=== PATIENT | male | born 1955 | race Caucasian/White ===

== ENCOUNTER 2017-03-24 23:02 | Inpatient (IN) | payer BC ==
--- NOTE | ~2017-03-24 | IDS ---
Interim Discharge Summary [facility] [address] [place]. [address] NAME: KENNETH LYMAN : 59 STATUS : DIS IN PAT#: [id number] AGE: 62 ADM/REG DATE : 03/25/17 MR#: [id number] REPORT SERV DATE: 04/10/17 DICTATED BY: YO SANDERS DATE: 04/07/17 REPORT STATUS : Draft TRANSCRIBED BY: DOROTHY DATE: 04/07/17 ADMISSION DATE: 03/25/2017 DISCHARGE DATE: PROCEDURES DONE: 1. 03/25/2017, chest x-ray: No acute cardiopulmonary disease identified. 2. 03/25/2017, ultrasound of kidneys: Both kidneys are normal size and configuration. There is no kidney stones or hydronephrosis. Echogenicity of the renal parenchyma is normal. The patient has 2.6 x 1.5 benign. 3. 03/26/2017, 2D echo: Severe left ventricle dysfunction noted with left ventricular ejection fraction at 25%, which compares to 55% on 01/16/2017, moderate right ventricular systolic function, mild mitral. REASON FOR ADMISSION: Dizziness with orthostatic hypotension, and acute renal failure. CONSULT: Dr. Alarcon for Psychiatry and renal. HISTORY OF HOSPITAL STAY: A 62-year-old white male with past medical history of multiple myeloma, coronary artery disease status post CABG, alcoholic pancreatitis, diabetes, rheumatoid arthritis, mitral valve repair, hypertension, depression, alcoholism, peripheral arterial disease, neuropathy, COPD, presenting with dizziness, orthostatic hypotension, and acute renal failure. The patient was initially admitted in the intensive care unit for his orthostatic hypotension, acute renal failure, and dizziness. The patient turned out to have alcohol DTs at that time. The patient was controlled with Librium at 300 mg total per day. Unfortunately, Ativan has the opposite effect on this patient which causes more agitation. Nonetheless, the patient was then transferred to the floor and eventually the patient's DTs subsequently was better control with the decrease of Librium as well as the use of vodka. Psychiatry was consulted due to the patient's continued behavioral issues as well as his alcohol dependence. Psychiatry started the patient on Seroquel for behavior control as well as Remeron for sleep. However, despite the initial starting medication of Seroquel, the patient continues to have behavioral issues. Questionable if the behavioral issue is causing the patient to have/cause increased alcohol intake. Hopefully, once the patient's medication has been titrated for behavioral issues, the patient can be safely discharged home. The patient initially was going to go to [facility] but fortunately the patient was able to walk at least 400 feet without any difficulties. DIAGNOSES ON DISCHARGE: 1. Dizziness with orthostatic, nausea and vomiting resolved. 2. Nausea, vomiting, secondary alcohol DTs, resolved. 3. ETOH with DTs, severe. Currently controlled but requires Seroquel for behavioral control. The patient's p.r.n. Librium as well as the p.r.n. vodka has been discontinued. Relying on Seroquel for behavioral control. 4. Diabetes type 2, currently asymptomatic. 5. Hypertension, stable. Interim Discharge Summary [address] [address] NAME: KENNETH LYMAN : 59 STATUS : DIS IN PAT#: [id number] AGE: 62 ADM/REG DATE : 03/25/17 MR#: [id number] REPORT SERV DATE: 04/10/17 DICTATED BY: YO SANDERS DATE: 04/07/17 REPORT STATUS : Draft TRANSCRIBED BY: DOROTHY DATE: 04/07/17 DANIEL/DOROTHY Yo Sanders MD / [id number] CC: MD Brooklyn Mratinez M.D.
--- NOTE | ~2017-03-24 | CN ---
Consultation Report [facility] [address] [place]. [address] NAME: KENNETH LYMAN : 59 STATUS : ADM IN PAT#: [id number] AGE: 62 ADM/REG DATE : 03/25/17 MR#: [id number] REPORT SERV DATE: 03/25/17 DICTATED BY: DATE: REPORT STATUS : Draft TRANSCRIBED BY: MODL DATE: 03/25/17 CONSULTATION DATE OF CONSULTATION: 03/25/2017 REASON FOR CONSULTATION: Acute kidney injury. HISTORY OF PRESENT ILLNESS: This is a 62-year-old, male patient, who presents to [facility] with a complaint of dizziness and fatigue. He was noted to exhibit acute kidney injury on assessment and prompted evaluation in inpatient hospital support. He has been seen in consultation by Dr. Cox for his known diagnosis of multiple myeloma. We are asked to evaluate the patient in response to elevated creatinine at 4.73 with usual baseline appearing to be approximately around 1.6 to 1.8. He has however had previous acute kidney injuries with max creatinine listed at 9.41 in 02/2016, de-escalating to dismissal on 03/23/2016 at 2.95 with readmission in 07/2016, creatinine 4.75, dismissal on 08/17/2016 at 1.34. Re-evaluation on 09/18/2016 with creatinine 1.88 and then again in 01/2017 of 0.89. Creatinine on admission today at 5.67, now subsiding to 4.73. The patient is noncommittal about his level and use of alcohol at home, although he does carry a diagnosis history of alcoholic pancreatitis and is known to frequently use alcohol by history. He reports feeling dizzy and fatigued over the last 48 to 72 hours and reported to [facility] for evaluation where he was noted to have hypotension and he concomitantly used GRACIELA inhibitor. He is awake and alert. This morning, he is without complaint and lying in bed during evaluation. PAST MEDICAL HISTORY: Positive for multiple myeloma, status post chemotherapy, completed in 05/2016, followed by Dr. Cox, who has evaluated the patient this morning; coronary artery disease, status post CABG, followed by Dr. Burkett; alcoholic pancreatitis; diabetes mellitus; rheumatoid arthritis; mitral valve repair; hypertension; depression; liver hemangioma; colon polyps; alcoholism; peripheral artery disease; neuropathy; COPD; previous CABG in 2015; and previous mitral repair. ALLERGIES: HE HAS AN ALLERGY TO PHENERGAN. HOME MEDICATIONS: Include ASA 81 mg daily, Coreg 6.25 mg p.o. b.i.d., Neurontin 300 mg p.o. b.i.d., Levemir 11 units subcu twice daily, lisinopril 20 mg p.o. daily, OxyContin 10 mg p.o. q.12 hours p.r.n., Crestor 10 mg p.o. at bedtime, oxycodone 20 mg p.o. every four hours p.r.n. as needed. REVIEW OF SYSTEMS: Completed. Please see HPI for pertinent details. SOCIAL HISTORY: Chronic use of ETOH. The patient states that he approximately uses 15 out of 30 days alcohol and varies his consumption. He states that he is a previous smoker and intermittently smokes now. In review of his previous dictations, it appears on this Consultation Report [address] [address] NAME: KENNETH LYMAN : 59 STATUS : ADM IN [facility]#: [id number] AGE: 62 ADM/REG DATE : 03/25/17 MR#: [id number] REPORT SERV DATE: 03/25/17 DICTATED BY: DATE: REPORT STATUS : Draft TRANSCRIBED BY: DOROTHY DATE: 03/25/17 admission assessment created this visit, he admits to drinking daily. He is noncommittal about whether or not he may chronically use nonsteroidal medications. FAMILY HISTORY: Noncontributory and not reviewed during this consultation and dictation. PHYSICAL EXAMINATION: VITAL SIGNS: Blood pressure 122/64, temperature 97.8, respiratory rate 18, heart rate is 70 beats per minute. GENERAL: He is awake, alert, and oriented x3 and is appropriate and oriented on evaluation. HEENT: Normocephalic and atraumatic. Normal ocular movements. No scleral icterus. No conjunctival pallor is appreciated. NECK: Supple. No thyromegaly. No JVD or mass. CHEST: Shows positive S1 and S2. No rubs. No gallops. Lungs diminished to auscultation throughout with normal expansion and effort. No noted wheezes or rhonchi on auscultation. ABDOMEN: Soft and nontender with positive bowel sounds. No appreciable mass or tenderness. SKIN: Warm, dry, and intact on visualized surfaces. No rash, lesions, or ecchymosis. NEUROLOGIC: He appears to be grossly intact and nonfocal and he is of appropriate mood and affect. LABORATORY DATA: Pertinent laboratories and imaging to this evaluation are as follows. Most recent comprehensive metabolic panel: Sodium 141, potassium 3.0, chloride 106, CO2 23, BUN 37, creatinine 4.73, reflected GFR at 12 mL/minute. Calcium 7.9, magnesium 2.6, albumin 3.1, total bilirubin 0.6, alkaline phos at 90, ALT and AST at 31 and 23, TSH 0.587. Serum protein electrophoresis is pending. Ionized calcium is at 5.12. White blood cell count of 5.3, hemoglobin 10.5, hematocrit 31.7, platelets at 87. Portable chest x-ray, no acute cardiopulmonary deficit is noted. Drug screen and alcohol screen was negative, and ammonia level was at 24. IMPRESSION AND PLAN: This is a 62-year-old, male patient, now admitted to [facility] with dizziness, lethargy, and near-syncope with concomitant use of GRACIELA inhibitor, known history of alcohol abuse and known history of multiple myeloma. It appears through review with the patient that he has had some low blood pressures at home, and he continues to exhibit some level of hypotension on entry here at [facility]. Appropriately, his GRACIELA inhibitor has been removed and his beta-jaron is being currently held. He is being provided IV supplement with a banana bag, would also submit that his lactated Ringer's should be changed at half-normal saline with 20 mEq of potassium to follow intermittent infusion of banana bag as listed above as his potassium is depressed. Continue to hold his GRACIELA inhibitor as listed. Monitor his blood pressure and allow the blood pressure increase to increase his perfusion. Considering the acute nature of his renal failure, we will check renal ultrasound, although I am doubtful that we will find any acute abnormality. He continues to make a reasonable amount of urine, and we are hopeful that he will recover his renal function baseline. Injury is likely relatable to ATN due to hypoperfusion with suboptimal blood pressures plus or minus volume contraction. Further modification of treatment plan may be made based on clinical presentation, the patient's laboratory results, further consultation with renal attending. Consultation Report [facility] [address] [place]. [address] NAME: KENNETH LYMAN : 59 STATUS : ADM IN PAT#: [id number] AGE: 62 ADM/REG DATE : 03/25/17 MR#: [id number] REPORT SERV DATE: 03/25/17 DICTATED BY: DATE: REPORT STATUS : Draft TRANSCRIBED BY: MODL DATE: 03/25/17 We appreciate the consultation and we are glad to follow with you. /DOROTHY Quang Adamson NP / [id number] CC: Pallavi Shaver M.D.
--- NOTE | ~2017-03-24 | CN ---
Consultation Report [facility] [address] [place]. [address] NAME: KENNETH LYMAN : 59 STATUS : ADM IN PAT#: [id number] AGE: 62 ADM/REG DATE : 03/25/17 MR#: [id number] REPORT SERV DATE: 04/05/17 DICTATED BY: WON MICHELLE DATE: 04/05/17 REPORT STATUS : Draft TRANSCRIBED BY: MODL DATE: 04/05/17 PSYCHIATRIC CONSULTATION DATE OF CONSULTATION: 04/05/2017 I reviewed the patient's current and old medical records. HISTORY OF PRESENT ILLNESS: He was admitted with fatigue, orthostatic symptoms, dizziness, and bony pain. I was asked to address possible depression. PAST PSYCHIATRIC HISTORY: He reports he had one admission for alcohol rehabilitation to a facility in [place] about 10 years ago. He reports that he has been alcohol dependent for all or most of his adult life. He reports his longest period of sobriety was about 10 months. He also reports feeling depressed from time to time, but it is difficult to determine if this is a problem which is independent of his alcoholism. He said he was drinking a pint or may be a fifth of liquor every few days. He felt he needed alcohol to get to sleep at night. He also reports some distress concerning his recent diagnosis with multiple myeloma, his compromised cardiac condition, and his past CABG and mitral valve repair. FAMILY HISTORY: No psychiatric illness. He said his older brother may have had an alcohol problem but he is now sober. SOCIAL HISTORY: He has been and 4 times. He has two daughters of whom he is very proud. One is a nurse and the other is a certified ethical hacker. He also has two grandchildren. He became tearful as he talked about his daughters and grandchildren. 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 MENTAL STATUS: He was pleasant and cooperative in attitude. His mood was dysphoric. His affect was labile with a few very brief episodes of crying. Overall his mentation was very slowed. He was able to answer orientation questions only after long pauses. He was oriented to "March"-"1969"-"[facility]"- "[place]." He was not able to name the President but he said "the one who should not be President." DIAGNOSIS: 1. Alcohol dependence and withdrawal. 2. Depressive disorder, not otherwise specified. RECOMMENDATIONS: The slowing of mentation was quite remarkable. Could it be a Librium effect? We discussed a plan for sobriety. He was not interested in returning to or reentering a rehab facility. He said "it is something I have to do". He was agreeable to a trial of Remeron 30 mg p.o. at bedtime. I will follow up tomorrow. Consultation Report [address] [place]. [address] NAME: KENNETH LYMAN : 59 STATUS : ADM IN PAT#: [id number] AGE: 62 ADM/REG DATE : 03/25/17 MR#: [id number] REPORT SERV DATE: 04/05/17 DICTATED BY: WON MICHELLE DATE: 04/05/17 REPORT STATUS : Draft TRANSCRIBED BY: DOROTHY DATE: 04/05/17 DK/DOROTHY Won Michelle M.D. / [id number] CC: MD Brooklyn Martinez M.D.
--- NOTE | ~2017-03-24 | HP ---
History And Physical [address] [address] NAME: KENNETH LYMAN HASMUKH : 59 STATUS : ADM IN [facility]#: [id number] AGE: 62 ADM/REG DATE : 03/25/17 MR#: [id number] REPORT SERV DATE: 03/25/17 DICTATED BY: LUDMILA LEARY DATE: 03/25/17 REPORT STATUS : Draft TRANSCRIBED BY: MODL DATE: 03/25/17 DATE OF ADMISSION: 03/25/2017 CHIEF COMPLAINT: A 62-year-old male presenting with dizziness, orthostatic symptoms, and evidence of acute renal failure. HISTORY OF PRESENT ILLNESS: The patient's history was obtained through careful interview with the patient, coupled with review of [facility] medical records. The patient for about four days now has had increasing nausea, episodes of vomiting, decreased appetite with this he has experienced dizziness, lightheadedness, and orthostatics symptoms. He has severe exertional lightheadedness causing him to be almost completely inactive. He has checked his blood pressure at home and this evening noticed a blood pressure of 78/50, but has been consistently low in the 80s and 90s. He describes diffuse bony pain mostly in his neck and back, but throughout most of the bones of his body. He describes it as a stiffness and an aching quality, 7 to 8/10 severity that is constant. About three weeks ago, he fractured and lacerated his right ankle and it has apparently being treated and monitored conservatively. He has "extreme" neuropathy with loss of sensation in his hands and feet that he attributes to previous chemotherapy. He has had recent sinus issues. No cough. No shortness of breath. No chest pain. No fevers or chills. REVIEW OF SYSTEMS: Otherwise, a 14-point review of systems was obtained and was negative. PAST MEDICAL HISTORY: 1. Multiple myeloma status post chemotherapy completed in May 2016, followed by Dr. Cox. 2. Coronary artery disease, status post CABG, followed by Dr. Burkett. 3. Alcoholic pancreatitis. 4. Diabetes. 5. Rheumatoid arthritis. 6. Mitral valve repair. 7. Hypertension. 8. Depression. 9. Liver hemangioma. 10.Colon polyps. 11.Alcoholism. History And Physical [address] [address] NAME: KENNETH LYMAN HASMUKH : 59 STATUS : ADM IN PAT#: [id number] AGE: 62 ADM/REG DATE : 03/25/17 MR#: [id number] REPORT SERV DATE: 03/25/17 DICTATED BY: LUDMILA LEARY DATE: 03/25/17 REPORT STATUS : Draft TRANSCRIBED BY: MODJesus DATE: 03/25/17 12.Peripheral arterial disease. 13.Neuropathy. 14.COPD. PAST SURGICAL HISTORY: 1. CABG in 2014. 2. Mitral valve repair. ALLERGIES: TO PHENERGAN. SOCIAL HISTORY: Quit smoking. Drinks vodka daily. Lives alone. He is . Lives in [place], [place]. 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 He ambulates with a cane. He has a daughter who works as a nurse and lives locally. FAMILY HISTORY: Diabetes. Mother with breast cancer. CURRENT MEDICATIONS: 1. Aspirin 81 mg p.o. daily. 2. Coreg 6.25 mg p.o. b.i.d. 3. Neurontin 300 mg p.o. b.i.d. 4. Levemir 11 units subcutaneous twice a day. 5. Lisinopril 20 mg p.o. daily. 6. OxyContin 10 mg p.o. b.i.d. 7. Crestor 10 mg p.o. daily. 8. Oxycodone 20 mg every 4 hours p.r.n. PHYSICAL EXAMINATION: VITAL SIGNS: Temperature 98.2, pulse 80, blood pressure 81/35 with a mean arterial pressure initially of 64, the blood pressure did improve to consistent mean arterial pressure over 70 after an initial 1 L normal saline bolus, respiratory rate 16, and O2 saturation 96% on room air. GENERAL: A pleasant, cooperative male, in no acute distress. HEENT: Pupils equal, round, and reactive to light. No conjunctival pallor. No scleral icterus. Nares are patent. Oropharynx is clear of obstruction. Dry mucous membranes. NECK: Trachea midline. No thyromegaly. LYMPH: No cervical lymphadenopathy. No supraclavicular lymphadenopathy. RESPIRATORY: Clear to auscultation at bases. No wheezes, rales, or rhonchi. Normal respiratory effort. CARDIOVASCULAR: Regular rate and rhythm. No murmurs, rubs, or gallops. No extremity edema is appreciated. ABDOMEN: Soft, nontender, and nondistended. No flank tenderness. No hepatosplenomegaly. DERMATOLOGICAL: Warm and dry extremities. No pallor. No cyanosis. PSYCHIATRIC: Normal affect. Good mood. Alert and oriented x3. LABORATORY DATA: Albumin 3.4. Liver enzymes within normal limits. Ammonia level 24. White blood cell count 6.1, hemoglobin 11, hematocrit 33, and platelets 115. History And Physical [address] [address] NAME: KENNETH LYMAN : 59 STATUS : ADM IN PAT#: [id number] AGE: 62 ADM/REG DATE : 03/25/17 MR#: [id number] REPORT SERV DATE: 03/25/17 DICTATED BY: LUDMILA LEARY DATE: 03/25/17 REPORT STATUS : Draft TRANSCRIBED BY: DOROTHY DATE: 03/25/17 Sodium 131, potassium 2.5, chloride 94, bicarb 31, BUN 39, creatinine 5.67, and glucose 146. Urinalysis shows no evidence of infection, but positive protein. STUDIES: Chest x-ray by my own evaluation shows flattening diaphragm and COPD changes, but nothing acute. ASSESSMENT AND PLAN: 1. Acute renal failure. Place on IV fluids. Place Pan catheter. Provide supportive care of hypertension. Obtain Nephrology consult. 2. Hypertension. Hold blood pressure medications. Place on IV fluids. 3. Alcoholism. P.R.N. Librium. Place on banana bag IV daily. 4. Multiple myeloma. Check ESR. Check serum protein electrophoresis. Check ionized calcium. 5. Chronic obstructive pulmonary disease. Place on DuoNeb nebulizers. KPL/MODL Ludmila Leary M.D. / [id number] CC: Pallavi Shaver M.D. Andrew H Fowler, M.D. Edward Arrowsmith, M.D.
--- NOTE | ~2017-03-24 | DS ---
Discharge Summary [facility] [address] [place]. [address] NAME: KENNETH LYMAN : 59 STATUS : DIS IN PAT#: [id number] AGE: 62 ADM/REG DATE : 03/25/17 MR#: [id number] REPORT SERV DATE: 04/10/17 DICTATED BY: LUCY FLOWER DATE: 04/09/17 REPORT STATUS : Draft TRANSCRIBED BY: MODJesus DATE: 04/09/17 ADMISSION DATE: 03/25/2017 DISCHARGE DATE: 04/09/2017 PRINCIPAL DIAGNOSIS: Delirium tremens in the setting of alcohol abuse. SECONDARY DIAGNOSES: 1. Hypotension. 2. Chronic obstructive pulmonary disease. 3. Chronic systolic congestive heart failure. 4. Acute renal failure. 5. History of rheumatoid arthritis. 6. History of mitral valve repair. 7. Tobacco abuse. 8. Chronic pain with opioid dependence. HISTORY OF PRESENT ILLNESS: Please see Dr. Martinez's dictation from 03/25/2017. HOSPITAL COURSE: The patient was admitted with weakness, hypotension, CHF medications had to be held due to low blood pressure. Librium was given p.r.n., however despite that he went into delirium tremens requiring brief ICU stay, high doses of Ativan which were ultimately able to be weaned back to Librium. He was continued upon daily vodka and Librium 50 mg t.i.d. before Psychiatry was consulted, who rightly discontinued the actual alcohol in the setting of alcohol abuse and alcoholic cardiomyopathy. He was put on the Seroquel p.r.n., Librium was also changed to p.r.n. He had no further withdrawal symptoms. His CHF medications were restarted at lower doses and he met the maximum benefit of hospitalization by 04/09/2017. He declined inpatient or outpatient alcohol rehab, he said that he can quit this on his own. He was given prescriptions for Seroquel and Librium p.r.n. with instructions to follow up with Dr. Cortez. He was instructed not to smoke to reduce his opiate dependence, not to drink alcohol, and take the following medications: 1. Prinivil 10 mg daily. 2. Levemir 10 q.h.s. 3. Coreg was increased to 3.125 mg b.i.d. 4. Librium as mentioned. 5. Seroquel as mentioned. 6. OxyContin 10 mg b.i.d. 7. Lipitor 20 mg q.h.s. 8. Daily aspirin. 9. Oxycodone was reduced to 10 mg q.4 hours p.r.n., given the very high p.r.n. doses he was on through Pain Management. SHIRIN/DOROTHY Lucy Sood Discharge Summary [facility] [id number] [place]. [address] NAME: KENNETH LYMAN : 59 STATUS : DIS IN PAT#: [id number] AGE: 62 ADM/REG DATE : 03/25/17 MR#: [id number] REPORT SERV DATE: 04/10/17 DICTATED BY: LUCY FLOWER DATE: 04/09/17 REPORT STATUS : Draft TRANSCRIBED BY: DOROTHY DATE: 04/09/17 Pallavi Flower / [id number] CC: Pallavi Bryson M.D.
[~2017-03-24 23:02] MED LIST: ASAB PO; B1100 PO; C5 PO; COREG3 PO; CRESTOR10; CRESTOR10 PO; CRESTOR20 MG PO; CRESTOR40 MG PO; DEXAMETHASONE; DURA50 TOP; FOLIC PO; HABIT21 TOP; HALF81 PO; KDUR20 PO; L40 PO; LEVEMIR SC; LIPITOR40 PO; MSCONT15 PO; MVI PO; NEUR300 PO; NIACIN100 PO; NORCO1 TAB PO; NORV5 PO; NOVOLOG SC; OXYCOD PO; OXYCON10 PO; OXYIR5 MG PO; PCET PO; PERCOCET1 TA2 PO; PERCOCET1 TA4 PO; PR25 PO; PRILOSEC OTC20 MG PO; PRILOSEC40 MG PO; PRIN10 PO; VITC500 PO; WELLSR150 PO; WELLXL150 PO; ZENPEP5000 UNIT PO; [UNRECOGNIZED DRUG - CODE]; [UNRECOGNIZED DRUG - OTHER] IV/IM/SC
[2017-03-25] MEDS ORDERED: ZESTRIL20 MG PO (00:46)
[2017-03-25] MEDS ORDERED: COREG6 PO (00:47)
[2017-03-25 00:58] LABS: BASOPHILS 0.7 %; BASOPHILS ABSOLUTE 0.04 10/3/uL (0.0-0.16); EOSINOPHILS ABSOLUTE 0.12 10/3/uL (0.0-0.53); ER CBC TAT 0 Hrs 03 Mins; HEMOGLOBIN 11.5 g/dL (13.6-17.8); IMMATURE GRANULOCYTES 0.2 %; IMMATURE GRANULOCYTES ABSOLUTE 0.01 10/3/uL (0.0-0.11); LYMPHOCYTES 30.6 %; LYMPHOCYTES ABSOLUTE 1.85 10/3/uL (0.67-4.30); MEAN CORPUSCULAR HEMOGLOB 32.6 pg (26.0-34.0); MEAN PLATELET VOLUME 11.1 fL (9.2-13.0); MONOCYTES 9.3 %; MONOCYTES ABSOLUTE 0.56 10/3/uL (0.21-1.20); NEUTROPHILS 57.2 %; NEUTROPHILS ABSOLUTE 3.47 10/3/uL (2.02-8.40); RBC DISTRIBUTION WIDTH 15.4 % (12.0-16.0); RED CELL COUNT 3.53 10/6/uL (4.7-6.1); WHITE BLOOD CELLS 6.1 10/3/uL (4.5-10.5)
[2017-03-25] MEDS ORDERED: OXYCOD PO (00:58)
[2017-03-25 01:03] LABS: ASCORBIC ACID (UR NOT ORDER) NEG (NEG); BILIRUBIN, URINE NEGATIVE (NEG); ER URINALYSIS TAT 0 Hrs 00 Mins; KETONE, URINE NEGATIVE (NEG); LEUKOCYTE ESTERASE(NOT OR NEG (NEG); NITRITE (URINE) NEG (NEG); WBC (NOT ORDERED) (RFLEX) 1 (0-5)
[2017-03-25 01:04] LABS: HEMATOCRIT 32.9 % (40.0-51.0); MANUAL DIFF NO %; MEAN CORPUSCULAR VOLUME 93.2 fL (80-100); PLATELET COUNT 115 10/3/uL (150-400)
[2017-03-25 01:14] LABS: A/G RATIO 1.1 (0.7-1.9); ALBUMIN 3.4 G/DL (3.5-5.0); CALCIUM, SERUM 8.3 MG/DL (8.5-10.4); CHLORIDE, SERUM 94 MMOL/L (96-112); CO2 (CARBON DIOXIDE) 31 MMOL/L (24-34); GLUCOSE, SERUM 146 MG/DL (60-99); SGOT(AST) 27 U/L (5-40); SGPT(ALT) 35 U/L (5-65); TOTAL BILIRUBIN 0.7 MG/DL (0-1.2); TOTAL PROTEIN 6.4 G/DL (6.0-8.5)
[2017-03-25 01:15] LABS: ALKALINE PHOSPHATASE 101 U/L (45-117); BUN (BLOOD UREA NITROGEN) 39 MG/DL (6-23); CREATININE 5.67 MG/DL (0.70-1.30); GFR AFRICAN AMERICAN 12 ML/MIN (>=60); GFR NON AFRICAN AMERICAN 10 ML/MIN (>=60); POTASSIUM, SERUM 2.5 MMOL/L (3.5-5.3); SODIUM, SERUM 131 MMOL/L (135-148)
[2017-03-25 01:21] LABS: AMPHETAMINES (NOT ORD) NEG (NEG); BARBITURATES (NOT ORDERED NEG (NEG); BENZODIAZEPINES (NOT ORD) NEG (NEG); CANNABINOIDS (THC) NEG (NEG); COCAINE (NOT ORDERED) NEG (NEG); OPIATES POS (NEG); PHENCYCLIDINE(PCP) NEG (NEG); TRICYCLICS NEG (NEG)
[2017-03-25 01:40] LABS: ALBUMIN 3.4 G/DL (3.5-5.0); ALKALINE PHOSPHATASE 102 U/L (45-117); DIRECT BILIRUBIN 0.2 MG/DL (0.0-0.4); INDIRECT BILIRUBIN(NOT ORDER) 0.5 MG/DL (0.1-0.9); SGOT(AST) 27 U/L (5-40); SGPT(ALT) 34 U/L (5-65); TOTAL BILIRUBIN 0.7 MG/DL (0-1.2); TOTAL PROTEIN 6.4 G/DL (6.0-8.5)
[2017-03-25 01:42] LABS: ACETAMINOPHEN LEVEL (TYLENOL) < 2.0 MCG/ML (10.0-20.0); ALCOHOL < 3 MG/DL (0); SALICYLATE < 1.7 MG/DL (-)
[2017-03-25 02:35] LABS: PARTIAL THROMBO TIME 30.7 SEC (22.5-37.2)
[2017-03-25 02:40] LABS: PROTIME (NOT ORD) 13.2 SEC (12.0-14.5)
[2017-03-25 09:15] LABS: BASOPHILS 0.4 %; BASOPHILS ABSOLUTE 0.02 10/3/uL (0.0-0.16); EOSINOPHILS 1.5 %; EOSINOPHILS ABSOLUTE 0.08 10/3/uL (0.0-0.53); HEMATOCRIT 31.7 % (40.0-51.0); HEMOGLOBIN 10.5 g/dL (13.6-17.8); IMMATURE GRANULOCYTES 0.4 %; IMMATURE GRANULOCYTES ABSOLUTE 0.02 10/3/uL (0.0-0.11); LYMPHOCYTES 29.7 %; LYMPHOCYTES ABSOLUTE 1.56 10/3/uL (0.67-4.30); MEAN CORPUSCULAR HEMOGLOB 31.7 pg (26.0-34.0); MEAN CORPUSCULAR VOLUME 95.8 fL (80-100); MEAN PLATELET VOLUME 11.9 fL (9.2-13.0); MONOCYTES ABSOLUTE 0.42 10/3/uL (0.21-1.20); NEUTROPHILS ABSOLUTE 3.16 10/3/uL (2.02-8.40); PLATELET COUNT 87 10/3/uL (150-400); RBC DISTRIBUTION WIDTH 15.4 % (12.0-16.0); RED CELL COUNT 3.31 10/6/uL (4.7-6.1); WHITE BLOOD CELLS 5.3 10/3/uL (4.5-10.5)
[2017-03-25 09:16] LABS: MANUAL DIFF NO %; MEAN CORPUS HGB CONC 33.1 g/dL (32.0-36.0)
[2017-03-25 09:38] LABS: A/G RATIO 1.1 (0.7-1.9); ALBUMIN 3.1 G/DL (3.5-5.0); BUN (BLOOD UREA NITROGEN) 37 MG/DL (6-23); CALCIUM, SERUM 7.9 MG/DL (8.5-10.4); GLOBULIN 2.7 G/DL (2.5-4.1); GLUCOSE, SERUM 131 MG/DL (60-99); SGOT(AST) 23 U/L (5-40); SGPT(ALT) 31 U/L (5-65); TOTAL BILIRUBIN 0.6 MG/DL (0-1.2); TOTAL PROTEIN 5.8 G/DL (6.0-8.5)
[2017-03-25 09:39] LABS: ALKALINE PHOSPHATASE 90 U/L (45-117); CHLORIDE, SERUM 106 MMOL/L (96-112); CO2 (CARBON DIOXIDE) 23 MMOL/L (24-34); CREATININE 4.73 MG/DL (0.70-1.30); GFR AFRICAN AMERICAN 14 ML/MIN (>=60); GFR NON AFRICAN AMERICAN 12 ML/MIN (>=60); SODIUM, SERUM 141 MMOL/L (135-148); ULTRASENSITIVE TSH 0.587 MCIU/ML (0.358-3.740)
[2017-03-25 10:46] LABS: PARTIAL THROMBO TIME 24.4 SEC (22.5-37.2)
[2017-03-25 22:37] LABS: CHLORIDE, SERUM 106 MMOL/L (96-112); CO2 (CARBON DIOXIDE) 26 MMOL/L (24-34); GFR AFRICAN AMERICAN 19 ML/MIN (>=60); GFR NON AFRICAN AMERICAN 16 ML/MIN (>=60); GLUCOSE, SERUM 125 MG/DL (60-99); PHOSPHORUS, SERUM 2.3 MG/DL (2.5-4.5); POTASSIUM, SERUM 3.2 MMOL/L (3.5-5.3); SODIUM, SERUM 137 MMOL/L (135-148)
[2017-03-25 22:38] LABS: BUN (BLOOD UREA NITROGEN) 31 MG/DL (6-23); CREATININE 3.77 MG/DL (0.70-1.30)
[2017-03-26 05:03] LABS: BASOPHILS 0.7 %; BASOPHILS ABSOLUTE 0.04 10/3/uL (0.0-0.16); EOSINOPHILS 1.6 %; EOSINOPHILS ABSOLUTE 0.09 10/3/uL (0.0-0.53); HEMATOCRIT 32.2 % (40.0-51.0); HEMOGLOBIN 11.2 g/dL (13.6-17.8); IMMATURE GRANULOCYTES 0.2 %; IMMATURE GRANULOCYTES ABSOLUTE 0.01 10/3/uL (0.0-0.11); LYMPHOCYTES 36.5 %; LYMPHOCYTES ABSOLUTE 2.04 10/3/uL (0.67-4.30); MEAN CORPUSCULAR HEMOGLOB 32.7 pg (26.0-34.0); MEAN CORPUSCULAR VOLUME 94.2 fL (80-100); MONOCYTES 11.8 %; MONOCYTES ABSOLUTE 0.66 10/3/uL (0.21-1.20); NEUTROPHILS 49.2 %; NEUTROPHILS ABSOLUTE 2.75 10/3/uL (2.02-8.40); PLATELET COUNT 101 10/3/uL (150-400); RBC DISTRIBUTION WIDTH 15.7 % (12.0-16.0); RED CELL COUNT 3.42 10/6/uL (4.7-6.1); WHITE BLOOD CELLS 5.6 10/3/uL (4.5-10.5)
[2017-03-26 05:04] LABS: MANUAL DIFF NO %; MEAN CORPUS HGB CONC 34.8 g/dL (32.0-36.0)
[2017-03-26 05:13] LABS: ALBUMIN 2.9 G/DL (3.5-5.0); BUN (BLOOD UREA NITROGEN) 30 MG/DL (6-23); CALCIUM, SERUM 8.2 MG/DL (8.5-10.4); CHLORIDE, SERUM 107 MMOL/L (96-112); CO2 (CARBON DIOXIDE) 25 MMOL/L (24-34); CREATININE 3.39 MG/DL (0.70-1.30); GFR AFRICAN AMERICAN 22 ML/MIN (>=60); GFR NON AFRICAN AMERICAN 19 ML/MIN (>=60); GLUCOSE, SERUM 106 MG/DL (60-99); PHOSPHORUS, SERUM 2.7 MG/DL (2.5-4.5); POTASSIUM, SERUM 3.2 MMOL/L (3.5-5.3); SODIUM, SERUM 138 MMOL/L (135-148)
[2017-03-27 04:53] LABS: BASOPHILS 0.6 %; BASOPHILS ABSOLUTE 0.03 10/3/uL (0.0-0.16); EOSINOPHILS 1.4 %; EOSINOPHILS ABSOLUTE 0.07 10/3/uL (0.0-0.53); HEMATOCRIT 31.9 % (40.0-51.0); HEMOGLOBIN 10.8 g/dL (13.6-17.8); IMMATURE GRANULOCYTES 0.2 %; IMMATURE GRANULOCYTES ABSOLUTE 0.01 10/3/uL (0.0-0.11); LYMPHOCYTES 20.1 %; LYMPHOCYTES ABSOLUTE 0.99 10/3/uL (0.67-4.30); MEAN CORPUS HGB CONC 33.9 g/dL (32.0-36.0); MEAN CORPUSCULAR VOLUME 94.7 fL (80-100); MEAN PLATELET VOLUME 11.2 fL (9.2-13.0); MONOCYTES ABSOLUTE 0.59 10/3/uL (0.21-1.20); NEUTROPHILS 65.7 %; NEUTROPHILS ABSOLUTE 3.24 10/3/uL (2.02-8.40); PLATELET COUNT 104 10/3/uL (150-400); RED CELL COUNT 3.37 10/6/uL (4.7-6.1); WHITE BLOOD CELLS 4.9 10/3/uL (4.5-10.5)
[2017-03-27 04:56] LABS: MANUAL DIFF NO %
[2017-03-27 05:02] LABS: ALBUMIN 2.6 G/DL (3.5-5.0); CALCIUM, SERUM 8.4 MG/DL (8.5-10.4); CHLORIDE, SERUM 108 MMOL/L (96-112); CO2 (CARBON DIOXIDE) 24 MMOL/L (24-34); SODIUM, SERUM 140 MMOL/L (135-148)
[2017-03-27 05:05] LABS: BUN (BLOOD UREA NITROGEN) 25 MG/DL (6-23); CREATININE 2.58 MG/DL (0.70-1.30); GFR AFRICAN AMERICAN 30 ML/MIN (>=60); GFR NON AFRICAN AMERICAN 26 ML/MIN (>=60); GLUCOSE, SERUM 129 MG/DL (60-99); POTASSIUM, SERUM 2.9 MMOL/L (3.5-5.3)
[2017-03-27 11:51] LABS: T PROTEIN (ELECT)(NOT OR 5.2 G/DL (6.0-8.5)
[2017-03-28 01:01] LABS: BUN (BLOOD UREA NITROGEN) 20 MG/DL (6-23); CALCIUM, SERUM 8.6 MG/DL (8.5-10.4); CHLORIDE, SERUM 105 MMOL/L (96-112); CO2 (CARBON DIOXIDE) 26 MMOL/L (24-34); CREATININE 2.08 MG/DL (0.70-1.30); GFR AFRICAN AMERICAN 39 ML/MIN (>=60); GFR NON AFRICAN AMERICAN 34 ML/MIN (>=60); GLUCOSE, SERUM 150 MG/DL (60-99); PHOSPHORUS, SERUM 2.2 MG/DL (2.5-4.5); POTASSIUM, SERUM 3.7 MMOL/L (3.5-5.3); SODIUM, SERUM 138 MMOL/L (135-148)
[2017-03-28 03:43] LABS: BASOPHILS ABSOLUTE 0.04 10/3/uL (0.0-0.16); EOSINOPHILS 2.6 %; EOSINOPHILS ABSOLUTE 0.11 10/3/uL (0.0-0.53); HEMOGLOBIN 10.4 g/dL (13.6-17.8); IMMATURE GRANULOCYTES 0.2 %; IMMATURE GRANULOCYTES ABSOLUTE 0.01 10/3/uL (0.0-0.11); LYMPHOCYTES ABSOLUTE 1.39 10/3/uL (0.67-4.30); MEAN CORPUS HGB CONC 34.7 g/dL (32.0-36.0); MEAN CORPUSCULAR HEMOGLOB 32.4 pg (26.0-34.0); MEAN CORPUSCULAR VOLUME 93.5 fL (80-100); MEAN PLATELET VOLUME 11.8 fL (9.2-13.0); MONOCYTES 10.9 %; MONOCYTES ABSOLUTE 0.46 10/3/uL (0.21-1.20); NEUTROPHILS 52.3 %; PLATELET COUNT 128 10/3/uL (150-400); RED CELL COUNT 3.21 10/6/uL (4.7-6.1); WHITE BLOOD CELLS 4.2 10/3/uL (4.5-10.5)
[2017-03-28 03:46] LABS: MANUAL DIFF NO %
[2017-03-28 03:56] LABS: ALBUMIN 2.6 G/DL (3.5-5.0); BUN (BLOOD UREA NITROGEN) 19 MG/DL (6-23); CALCIUM, SERUM 8.4 MG/DL (8.5-10.4); CHLORIDE, SERUM 105 MMOL/L (96-112); CO2 (CARBON DIOXIDE) 25 MMOL/L (24-34); CREATININE 2.02 MG/DL (0.70-1.30); GFR AFRICAN AMERICAN 40 ML/MIN (>=60); GFR NON AFRICAN AMERICAN 35 ML/MIN (>=60); GLUCOSE, SERUM 161 MG/DL (60-99); PHOSPHORUS, SERUM 2.1 MG/DL (2.5-4.5); POTASSIUM, SERUM 3.3 MMOL/L (3.5-5.3); SODIUM, SERUM 138 MMOL/L (135-148)
[2017-03-28 11:30] LABS: BUN (BLOOD UREA NITROGEN) 17 MG/DL (6-23); CALCIUM, SERUM 8.7 MG/DL (8.5-10.4); CHLORIDE, SERUM 105 MMOL/L (96-112); CO2 (CARBON DIOXIDE) 23 MMOL/L (24-34); GFR AFRICAN AMERICAN 43 ML/MIN (>=60); GFR NON AFRICAN AMERICAN 37 ML/MIN (>=60); GLUCOSE, SERUM 186 MG/DL (60-99); PHOSPHORUS, SERUM 2.6 MG/DL (2.5-4.5); POTASSIUM, SERUM 3.8 MMOL/L (3.5-5.3); SODIUM, SERUM 136 MMOL/L (135-148)
[2017-03-28 11:33] LABS: A/G 1.31 RATIO (0.9-2.10); ALB RELATIVE % 56.7 % (60.0-89.0); ALBUMIN (ELECTRO) 2.95 GM/DL (3.2-5.5); ALPHA 1 (ELECTRO) 0.27 GM/DL (0.1-0.4); ALPHA 1 RELAT % (NOT ORD) 5.2 % (1.0-4.0); ALPHA 2 (ELECTRO) 0.76 GM/DL (0.5-1.10); ALPHA 2 RELAT % 14.7 % (4.5-26.0); BETA GLOBULIN (SPE) 0.74 GM/DL (0.60-1.30); BETA RELATIVE % 14.2 % (9.0-22.0); GAMMA GLOBULIN (SPE) 0.48 G/DL (0.70-1.60); GAMMA RELAT % 9.2 % (6.0-22.0)
[2017-03-28 16:14] LABS: CPK 90 U/L (0-200); TROPONIN I 0.02 NG/ML (<0.05)
[2017-03-28 16:16] LABS: CK-MB 3.5 NG/ML
[2017-03-29 05:54] LABS: HEMATOCRIT 30.3 % (40.0-51.0); HEMOGLOBIN 10.5 g/dL (13.6-17.8); MEAN CORPUS HGB CONC 34.7 g/dL (32.0-36.0); MEAN CORPUSCULAR VOLUME 92.4 fL (80-100); MEAN PLATELET VOLUME 11.9 fL (9.2-13.0); PLATELET COUNT 166 10/3/uL (150-400); RBC DISTRIBUTION WIDTH 15.7 % (12.0-16.0); RED CELL COUNT 3.28 10/6/uL (4.7-6.1); WHITE BLOOD CELLS 4.6 10/3/uL (4.5-10.5)
[2017-03-29 05:55] LABS: MANUAL DIFF YES %
[2017-03-29 05:58] LABS: BUN (BLOOD UREA NITROGEN) 12 MG/DL (6-23); CALCIUM, SERUM 8.9 MG/DL (8.5-10.4); CHLORIDE, SERUM 106 MMOL/L (96-112); CO2 (CARBON DIOXIDE) 24 MMOL/L (24-34); CREATININE 1.74 MG/DL (0.70-1.30); GFR AFRICAN AMERICAN 48 ML/MIN (>=60); GFR NON AFRICAN AMERICAN 42 ML/MIN (>=60); GLUCOSE, SERUM 133 MG/DL (60-99); PHOSPHORUS, SERUM 2.9 MG/DL (2.5-4.5); POTASSIUM, SERUM 3.5 MMOL/L (3.5-5.3); SODIUM, SERUM 139 MMOL/L (135-148); TROPONIN I 0.03 NG/ML (<0.05)
[2017-03-29 06:35] LABS: BASOPHILS 1 %; BASOPHILS ABSOLUTE (CALC) 0.05 10/3/uL (0.0-0.16); EOSINOPHILS 3 %; EOSINOPHILS ABSOLUTE (CALC) 0.14 10/3/uL (0.0-0.53); LYMPHOCYTES 32 %; LYMPHOCYTES ABSOLUTE (CALC) 1.47 10/3/uL (0.67-4.30); MONOCYTES 7 %; MONOCYTES ABSOLUTE (CALC) 0.32 10/3/uL (0.21-1.20); NEUTROPHILS ABSOLUTE (CALC) 2.62 10/3/uL (2.02-8.40); PLATELET ESTIMATE ADQ (ADEQUATE); SEGMENTED NEUTROPHIL (0) 57 %; TOTAL NUCLEATED CELLS 100
[2017-03-29 06:36] LABS: RBC MORPHOLOGY NORM (NORMAL)
[2017-03-30 06:09] LABS: BASOPHILS 1.3 %; BASOPHILS ABSOLUTE 0.05 10/3/uL (0.0-0.16); EOSINOPHILS 2.7 %; HEMOGLOBIN 9.9 g/dL (13.6-17.8); IMMATURE GRANULOCYTES 0.3 %; IMMATURE GRANULOCYTES ABSOLUTE 0.01 10/3/uL (0.0-0.11); LYMPHOCYTES 40.3 %; LYMPHOCYTES ABSOLUTE 1.52 10/3/uL (0.67-4.30); MEAN CORPUS HGB CONC 34.1 g/dL (32.0-36.0); MEAN CORPUSCULAR HEMOGLOB 31.9 pg (26.0-34.0); MEAN CORPUSCULAR VOLUME 93.5 fL (80-100); MEAN PLATELET VOLUME 11.6 fL (9.2-13.0); MONOCYTES 8.5 %; MONOCYTES ABSOLUTE 0.32 10/3/uL (0.21-1.20); NEUTROPHILS 46.9 %; NEUTROPHILS ABSOLUTE 1.77 10/3/uL (2.02-8.40); PLATELET COUNT 157 10/3/uL (150-400); RBC DISTRIBUTION WIDTH 15.8 % (12.0-16.0); WHITE BLOOD CELLS 3.8 10/3/uL (4.5-10.5)
[2017-03-30 06:11] LABS: MANUAL DIFF NO %
[2017-03-30 06:26] LABS: ALBUMIN 2.5 G/DL (3.5-5.0); BUN (BLOOD UREA NITROGEN) 13 MG/DL (6-23); CALCIUM, SERUM 8.4 MG/DL (8.5-10.4); CHLORIDE, SERUM 109 MMOL/L (96-112); CO2 (CARBON DIOXIDE) 24 MMOL/L (24-34); CREATININE 1.66 MG/DL (0.70-1.30); GFR AFRICAN AMERICAN 51 ML/MIN (>=60); GFR NON AFRICAN AMERICAN 44 ML/MIN (>=60); PHOSPHORUS, SERUM 3.3 MG/DL (2.5-4.5); POTASSIUM, SERUM 3.4 MMOL/L (3.5-5.3); SODIUM, SERUM 142 MMOL/L (135-148)
[2017-03-30 06:27] LABS: GLUCOSE, SERUM 104 MG/DL (60-99)
[2017-03-31 06:12] LABS: BASOPHILS 2.2 %; BASOPHILS ABSOLUTE 0.09 10/3/uL (0.0-0.16); EOSINOPHILS 2.9 %; EOSINOPHILS ABSOLUTE 0.12 10/3/uL (0.0-0.53); HEMATOCRIT 31.9 % (40.0-51.0); HEMOGLOBIN 10.7 g/dL (13.6-17.8); IMMATURE GRANULOCYTES 0.2 %; IMMATURE GRANULOCYTES ABSOLUTE 0.01 10/3/uL (0.0-0.11); LYMPHOCYTES 45.3 %; LYMPHOCYTES ABSOLUTE 1.88 10/3/uL (0.67-4.30); MANUAL DIFF NO %; MEAN CORPUS HGB CONC 33.5 g/dL (32.0-36.0); MEAN CORPUSCULAR HEMOGLOB 31.8 pg (26.0-34.0); MEAN CORPUSCULAR VOLUME 94.9 fL (80-100); MEAN PLATELET VOLUME 11.1 fL (9.2-13.0); MONOCYTES 6.7 %; MONOCYTES ABSOLUTE 0.28 10/3/uL (0.21-1.20); NEUTROPHILS 42.7 %; NEUTROPHILS ABSOLUTE 1.77 10/3/uL (2.02-8.40); PLATELET COUNT 178 10/3/uL (150-400); RBC DISTRIBUTION WIDTH 15.6 % (12.0-16.0); RED CELL COUNT 3.36 10/6/uL (4.7-6.1); WHITE BLOOD CELLS 4.2 10/3/uL (4.5-10.5)
[2017-03-31 06:20] LABS: ALBUMIN 2.9 G/DL (3.5-5.0); BUN (BLOOD UREA NITROGEN) 11 MG/DL (6-23); CALCIUM, SERUM 8.8 MG/DL (8.5-10.4); CHLORIDE, SERUM 112 MMOL/L (96-112); CO2 (CARBON DIOXIDE) 25 MMOL/L (24-34); CREATININE 1.66 MG/DL (0.70-1.30); GFR AFRICAN AMERICAN 51 ML/MIN (>=60); GFR NON AFRICAN AMERICAN 44 ML/MIN (>=60); GLUCOSE, SERUM 96 MG/DL (60-99); POTASSIUM, SERUM 3.9 MMOL/L (3.5-5.3); SGOT(AST) 20 U/L (5-40); SGPT(ALT) 17 U/L (5-65); SODIUM, SERUM 145 MMOL/L (135-148); TOTAL BILIRUBIN 0.7 MG/DL (0-1.2); TOTAL PROTEIN 5.9 G/DL (6.0-8.5)
[2017-03-31 06:21] LABS: ALKALINE PHOSPHATASE 107 U/L (45-117)
[2017-04-01 05:51] LABS: BASOPHILS 1.6 %; BASOPHILS ABSOLUTE 0.07 10/3/uL (0.0-0.16); EOSINOPHILS 2.3 %; HEMATOCRIT 31.9 % (40.0-51.0); HEMOGLOBIN 10.9 g/dL (13.6-17.8); IMMATURE GRANULOCYTES 0.2 %; IMMATURE GRANULOCYTES ABSOLUTE 0.01 10/3/uL (0.0-0.11); LYMPHOCYTES 35.2 %; LYMPHOCYTES ABSOLUTE 1.53 10/3/uL (0.67-4.30); MEAN CORPUS HGB CONC 34.2 g/dL (32.0-36.0); MEAN CORPUSCULAR HEMOGLOB 32.4 pg (26.0-34.0); MEAN CORPUSCULAR VOLUME 94.9 fL (80-100); MEAN PLATELET VOLUME 11.1 fL (9.2-13.0); MONOCYTES 6.9 %; NEUTROPHILS 53.8 %; NEUTROPHILS ABSOLUTE 2.34 10/3/uL (2.02-8.40); PLATELET COUNT 179 10/3/uL (150-400); RBC DISTRIBUTION WIDTH 15.7 % (12.0-16.0); RED CELL COUNT 3.36 10/6/uL (4.7-6.1); WHITE BLOOD CELLS 4.4 10/3/uL (4.5-10.5)
[2017-04-01 06:02] LABS: MANUAL DIFF NO %
[2017-04-01 06:03] LABS: A/G RATIO 0.9 (0.7-1.9); ALBUMIN 2.9 G/DL (3.5-5.0); ALKALINE PHOSPHATASE 97 U/L (45-117); BUN (BLOOD UREA NITROGEN) 13 MG/DL (6-23); CALCIUM, SERUM 9.1 MG/DL (8.5-10.4); CHLORIDE, SERUM 111 MMOL/L (96-112); CO2 (CARBON DIOXIDE) 27 MMOL/L (24-34); CREATININE 1.46 MG/DL (0.70-1.30); GFR AFRICAN AMERICAN 60 ML/MIN (>=60); GFR NON AFRICAN AMERICAN 52 ML/MIN (>=60); GLOBULIN 3.1 G/DL (2.5-4.1); GLUCOSE, SERUM 100 MG/DL (60-99); PHOSPHORUS, SERUM 4.1 MG/DL (2.5-4.5); POTASSIUM, SERUM 3.9 MMOL/L (3.5-5.3); SGOT(AST) 28 U/L (5-40); SGPT(ALT) 16 U/L (5-65); SODIUM, SERUM 144 MMOL/L (135-148); TOTAL BILIRUBIN 0.7 MG/DL (0-1.2)
[2017-04-02 05:04] LABS: BASOPHILS 1.9 %; BASOPHILS ABSOLUTE 0.08 10/3/uL (0.0-0.16); EOSINOPHILS 2.6 %; EOSINOPHILS ABSOLUTE 0.11 10/3/uL (0.0-0.53); HEMATOCRIT 33.7 % (40.0-51.0); IMMATURE GRANULOCYTES 0.5 %; IMMATURE GRANULOCYTES ABSOLUTE 0.02 10/3/uL (0.0-0.11); LYMPHOCYTES 41.5 %; LYMPHOCYTES ABSOLUTE 1.77 10/3/uL (0.67-4.30); MEAN CORPUS HGB CONC 32.6 g/dL (32.0-36.0); MEAN CORPUSCULAR HEMOGLOB 31.4 pg (26.0-34.0); MEAN CORPUSCULAR VOLUME 96.3 fL (80-100); MEAN PLATELET VOLUME 11.6 fL (9.2-13.0); MONOCYTES 5.4 %; MONOCYTES ABSOLUTE 0.23 10/3/uL (0.21-1.20); NEUTROPHILS 48.1 %; NEUTROPHILS ABSOLUTE 2.06 10/3/uL (2.02-8.40); PLATELET COUNT 202 10/3/uL (150-400); RBC DISTRIBUTION WIDTH 15.6 % (12.0-16.0); WHITE BLOOD CELLS 4.3 10/3/uL (4.5-10.5)
[2017-04-02 05:06] LABS: MANUAL DIFF NO %
[2017-04-02 05:20] LABS: ALBUMIN 2.9 G/DL (3.5-5.0); ALKALINE PHOSPHATASE 91 U/L (45-117); BUN (BLOOD UREA NITROGEN) 14 MG/DL (6-23); CALCIUM, SERUM 8.9 MG/DL (8.5-10.4); CHLORIDE, SERUM 111 MMOL/L (96-112); CO2 (CARBON DIOXIDE) 23 MMOL/L (24-34); CREATININE 1.34 MG/DL (0.70-1.30); GFR AFRICAN AMERICAN 66 ML/MIN (>=60); GFR NON AFRICAN AMERICAN 57 ML/MIN (>=60); GLUCOSE, SERUM 99 MG/DL (60-99); PHOSPHORUS, SERUM 4.2 MG/DL (2.5-4.5); POTASSIUM, SERUM 3.8 MMOL/L (3.5-5.3); SGOT(AST) 33 U/L (5-40); SGPT(ALT) 19 U/L (5-65); SODIUM, SERUM 145 MMOL/L (135-148); TOTAL BILIRUBIN 0.7 MG/DL (0-1.2); TOTAL PROTEIN 5.9 G/DL (6.0-8.5)
[2017-04-03 06:49] LABS: BASOPHILS 1.1 %; BASOPHILS ABSOLUTE 0.05 10/3/uL (0.0-0.16); EOSINOPHILS 2.5 %; EOSINOPHILS ABSOLUTE 0.11 10/3/uL (0.0-0.53); HEMATOCRIT 30.5 % (40.0-51.0); IMMATURE GRANULOCYTES 0.7 %; IMMATURE GRANULOCYTES ABSOLUTE 0.03 10/3/uL (0.0-0.11); LYMPHOCYTES 38.3 %; LYMPHOCYTES ABSOLUTE 1.69 10/3/uL (0.67-4.30); MEAN CORPUS HGB CONC 32.8 g/dL (32.0-36.0); MEAN CORPUSCULAR HEMOGLOB 31.6 pg (26.0-34.0); MEAN CORPUSCULAR VOLUME 96.5 fL (80-100); MONOCYTES 4.8 %; MONOCYTES ABSOLUTE 0.21 10/3/uL (0.21-1.20); NEUTROPHILS 52.6 %; NEUTROPHILS ABSOLUTE 2.32 10/3/uL (2.02-8.40); PLATELET COUNT 181 10/3/uL (150-400); RBC DISTRIBUTION WIDTH 15.7 % (12.0-16.0); RED CELL COUNT 3.16 10/6/uL (4.7-6.1); WHITE BLOOD CELLS 4.4 10/3/uL (4.5-10.5)
[2017-04-03 06:51] LABS: ALBUMIN 2.8 G/DL (3.5-5.0); BUN (BLOOD UREA NITROGEN) 14 MG/DL (6-23); CALCIUM, SERUM 8.8 MG/DL (8.5-10.4); CHLORIDE, SERUM 112 MMOL/L (96-112); CO2 (CARBON DIOXIDE) 27 MMOL/L (24-34); GFR AFRICAN AMERICAN 69 ML/MIN (>=60); GFR NON AFRICAN AMERICAN 59 ML/MIN (>=60); GLUCOSE, SERUM 106 MG/DL (60-99); PHOSPHORUS, SERUM 3.7 MG/DL (2.5-4.5); POTASSIUM, SERUM 3.4 MMOL/L (3.5-5.3); SODIUM, SERUM 145 MMOL/L (135-148)
[2017-04-03 07:04] LABS: MANUAL DIFF NO %
[2017-04-04 06:35] LABS: BASOPHILS 2.3 %; EOSINOPHILS 2.8 %; EOSINOPHILS ABSOLUTE 0.12 10/3/uL (0.0-0.53); HEMATOCRIT 31.7 % (40.0-51.0); HEMOGLOBIN 10.5 g/dL (13.6-17.8); IMMATURE GRANULOCYTES 0.2 %; IMMATURE GRANULOCYTES ABSOLUTE 0.01 10/3/uL (0.0-0.11); LYMPHOCYTES 41.7 %; LYMPHOCYTES ABSOLUTE 1.82 10/3/uL (0.67-4.30); MEAN CORPUS HGB CONC 33.1 g/dL (32.0-36.0); MEAN CORPUSCULAR HEMOGLOB 31.9 pg (26.0-34.0); MEAN CORPUSCULAR VOLUME 96.4 fL (80-100); MEAN PLATELET VOLUME 11.6 fL (9.2-13.0); MONOCYTES 4.8 %; MONOCYTES ABSOLUTE 0.21 10/3/uL (0.21-1.20); NEUTROPHILS 48.2 %; PLATELET COUNT 194 10/3/uL (150-400); RBC DISTRIBUTION WIDTH 15.8 % (12.0-16.0); RED CELL COUNT 3.29 10/6/uL (4.7-6.1); WHITE BLOOD CELLS 4.4 10/3/uL (4.5-10.5)
[2017-04-04 06:38] LABS: MANUAL DIFF NO %
[2017-04-04 07:03] LABS: BUN (BLOOD UREA NITROGEN) 13 MG/DL (6-23); CALCIUM, SERUM 8.9 MG/DL (8.5-10.4); CHLORIDE, SERUM 111 MMOL/L (96-112); CO2 (CARBON DIOXIDE) 27 MMOL/L (24-34); GFR AFRICAN AMERICAN 63 ML/MIN (>=60); GFR NON AFRICAN AMERICAN 54 ML/MIN (>=60); GLUCOSE, SERUM 118 MG/DL (60-99); PHOSPHORUS, SERUM 4.2 MG/DL (2.5-4.5); POTASSIUM, SERUM 3.9 MMOL/L (3.5-5.3); SODIUM, SERUM 143 MMOL/L (135-148)
[2017-04-06 06:07] LABS: BASOPHILS 1.7 %; BASOPHILS ABSOLUTE 0.08 10/3/uL (0.0-0.16); EOSINOPHILS 2.6 %; EOSINOPHILS ABSOLUTE 0.12 10/3/uL (0.0-0.53); HEMATOCRIT 33.7 % (40.0-51.0); HEMOGLOBIN 11.4 g/dL (13.6-17.8); LYMPHOCYTES ABSOLUTE 1.56 10/3/uL (0.67-4.30); MEAN CORPUS HGB CONC 33.8 g/dL (32.0-36.0); MEAN CORPUSCULAR HEMOGLOB 31.7 pg (26.0-34.0); MEAN CORPUSCULAR VOLUME 93.6 fL (80-100); MEAN PLATELET VOLUME 11.5 fL (9.2-13.0); MONOCYTES 3.9 %; MONOCYTES ABSOLUTE 0.18 10/3/uL (0.21-1.20); NEUTROPHILS 57.8 %; NEUTROPHILS ABSOLUTE 2.65 10/3/uL (2.02-8.40); PLATELET COUNT 203 10/3/uL (150-400); RBC DISTRIBUTION WIDTH 15.5 % (12.0-16.0); WHITE BLOOD CELLS 4.6 10/3/uL (4.5-10.5)
[2017-04-06 06:09] LABS: MANUAL DIFF NO %
[2017-04-06 06:34] LABS: A/G RATIO 1.1 (0.7-1.9); ALBUMIN 3.3 G/DL (3.5-5.0); ALKALINE PHOSPHATASE 88 U/L (45-117); BUN (BLOOD UREA NITROGEN) 13 MG/DL (6-23); CALCIUM, SERUM 9.7 MG/DL (8.5-10.4); CHLORIDE, SERUM 109 MMOL/L (96-112); CO2 (CARBON DIOXIDE) 23 MMOL/L (24-34); CREATININE 1.32 MG/DL (0.70-1.30); GFR AFRICAN AMERICAN 67 ML/MIN (>=60); GFR NON AFRICAN AMERICAN 58 ML/MIN (>=60); GLOBULIN 3.1 G/DL (2.5-4.1); GLUCOSE, SERUM 115 MG/DL (60-99); PHOSPHORUS, SERUM 4.4 MG/DL (2.5-4.5); POTASSIUM, SERUM 3.7 MMOL/L (3.5-5.3); SGOT(AST) 23 U/L (5-40); SGPT(ALT) 21 U/L (5-65); SODIUM, SERUM 143 MMOL/L (135-148); TOTAL BILIRUBIN 0.7 MG/DL (0-1.2); TOTAL PROTEIN 6.4 G/DL (6.0-8.5)
[2017-04-08 06:12] LABS: BASOPHILS 0.4 %; BASOPHILS ABSOLUTE 0.03 10/3/uL (0.0-0.16); EOSINOPHILS 2.1 %; EOSINOPHILS ABSOLUTE 0.17 10/3/uL (0.0-0.53); HEMATOCRIT 33.7 % (40.0-51.0); IMMATURE GRANULOCYTES 0.2 %; IMMATURE GRANULOCYTES ABSOLUTE 0.02 10/3/uL (0.0-0.11); LYMPHOCYTES 21.1 %; LYMPHOCYTES ABSOLUTE 1.71 10/3/uL (0.67-4.30); MEAN CORPUS HGB CONC 32.6 g/dL (32.0-36.0); MEAN CORPUSCULAR HEMOGLOB 31.8 pg (26.0-34.0); MEAN PLATELET VOLUME 11.4 fL (9.2-13.0); MONOCYTES 3.3 %; MONOCYTES ABSOLUTE 0.27 10/3/uL (0.21-1.20); NEUTROPHILS 72.9 %; NEUTROPHILS ABSOLUTE 5.89 10/3/uL (2.02-8.40); PLATELET COUNT 178 10/3/uL (150-400); RBC DISTRIBUTION WIDTH 16.1 % (12.0-16.0); RED CELL COUNT 3.46 10/6/uL (4.7-6.1)
[2017-04-08 06:13] LABS: MANUAL DIFF NO %; MEAN CORPUSCULAR VOLUME 97.4 fL (80-100); WHITE BLOOD CELLS 8.1 10/3/uL (4.5-10.5)
[2017-04-08 06:26] LABS: ALBUMIN 3.2 G/DL (3.5-5.0); ALKALINE PHOSPHATASE 77 U/L (45-117); CALCIUM, SERUM 9.2 MG/DL (8.5-10.4); CHLORIDE, SERUM 105 MMOL/L (96-112); CREATININE 1.81 MG/DL (0.70-1.30); GFR AFRICAN AMERICAN 46 ML/MIN (>=60); GFR NON AFRICAN AMERICAN 40 ML/MIN (>=60); GLOBULIN 3.1 G/DL (2.5-4.1); PHOSPHORUS, SERUM 4.8 MG/DL (2.5-4.5); POTASSIUM, SERUM 4.3 MMOL/L (3.5-5.3); SGOT(AST) 14 U/L (5-40); SGPT(ALT) 19 U/L (5-65); SODIUM, SERUM 141 MMOL/L (135-148); TOTAL BILIRUBIN 0.6 MG/DL (0-1.2); TOTAL PROTEIN 6.3 G/DL (6.0-8.5)
[2017-04-08 06:29] LABS: BUN (BLOOD UREA NITROGEN) 29 MG/DL (6-23); CO2 (CARBON DIOXIDE) 32 MMOL/L (24-34); GLUCOSE, SERUM 181 MG/DL (60-99)
[2017-04-09] MEDS ORDERED: L25 PO (10:08)
[2017-04-09] MEDS ORDERED: SEROQUEL25 PO (10:13)
[2017-04-09 22:41] LABS: THIAMINE 28.5 nmol/L (()); THIAMINE MONOPHOSPHATE 8.9 nmol/L (())
[2017-07-18] MEDS ORDERED: LYRICA50 PO (09:01)
[2017-07-18] MEDS ORDERED: NOVOLOG SC (09:03)
== END 2017-04-09 14:34 | disposition home or self-care (01) | DRG 683 ==
LOC: ER 23:02 → 2SO 03-25 02:39 → CCU 03-25 20:03 → 7NO 03-29 16:26
PROVIDERS: Hospitalist; Internal Medicine; Internal Medicine Critical Care Medicine; Internal Medicine Nephrology; Nurse Practitioner; Registered Nurse; Specialist
PROC: HZ2ZZZZ Detoxification Services for Substance Abuse Treatment (ICD-10-PCS; principal; 2017-03-25)
DX: N17.9 Acute kidney failure, unspecified (principal); I42.6 Alcoholic cardiomyopathy; F10.231 Alcohol dependence with withdrawal delirium; I50.22 Chronic systolic (congestive) heart failure; F11.20 Opioid dependence, uncomplicated; I11.0 Hypertensive heart disease with heart failure; C90.01 Multiple myeloma in remission; J44.9 Chronic obstructive pulmonary disease, unspecified; I25.10 Atherosclerotic heart disease of native coronary artery without angina pectoris; Z95.1 Presence of aortocoronary bypass graft; M06.9 Rheumatoid arthritis, unspecified; F32.9 Major depressive disorder, single episode, unspecified; Z87.891 Personal history of nicotine dependence; G89.29 Other chronic pain; Z86.010 Personal history of colon polyps; Z79.82 Long term (current) use of aspirin; I25.5 Ischemic cardiomyopathy
CPT/HCPCS: 71010; 76775; 80048; 80053; 80069; 80076; 80305; 80307; 81001; 82140; 82330; 82550; 82553; 82607; 82962; 83690; 83735; 84100; 84132; 84155; 84165; 84425; 84443; 84484; 85025; 85610; 85652; 85730; 87641; 93005; 93306; 94640; 96374; 97116-GP; 97163-GP; 97166-GO; 97530-GP; 97535-GO; 99285; A9270-GY; J0360; J1630; J2405; J3360; J3411; J3475

== ENCOUNTER 2017-04-11 18:02 | Inpatient (IN) | payer BC ==
--- NOTE | ~2017-04-11 | CN ---
Consultation Report [facility] [address] [place]. [address] NAME: KENNETH LYMAN : 59 STATUS : ADM IN PAT#: [id number] AGE: 62 ADM/REG DATE : 04/11/17 MR#: [id number] REPORT SERV DATE: 04/14/17 DICTATED BY: DATE: REPORT STATUS : Draft TRANSCRIBED BY: MODL DATE: 04/14/17 NEUROLOGY CONSULTATION DATE OF CONSULTATION: 04/14/2017 REASON FOR CONSULT: Encephalopathy. HISTORY OF PRESENT ILLNESS: This is a 62-year-old male who recently has had a prolonged hospitalization, was recently discharged home, and was noted to be hypotensive as well as encephalopathy, confusion. As a result, the patient was brought to the [facility] for reevaluation on 04/11/2017. The patient after hospitalization, Neurology was consulted, however, the patient was uncooperative and agitated. As a result, exam was unable to be performed. Today the patient reports feeling slightly better compared to prior and was slightly more agreeable although only limited examination can be performed. The patient denies any febrile episodes at home. Reports mild headache but not severe and otherwise denies any focal weakness or numbness and denies any other symptoms. The patient, after hospital discharge, has not had any significant medication changes. The patient did not disclose any other illness or discomfort. Review of systems was unable to be obtained due to the patient's lack of interest in answering questions, otherwise. PAST MEDICAL HISTORY: Significant for congestive heart failure, EF of 25%, chronic kidney disease, multiple myeloma status post chemotherapy, coronary artery disease, alcoholism in the past with history of alcohol withdrawal as well as DTs, history of hypertension, depression, insulin-dependent diabetes, rheumatoid arthritis, COPD, neuropathy with the patient apparently also noted to have a history of chronic pancreatitis in the past on CT scan. ALLERGIES: THE PATIENT WAS NOTED TO HAVE ALLERGY TO PHENERGAN. SOCIAL HISTORY: The patient does tobacco usage as well as history of alcohol usage. He has not had any alcohol intake since the hospital discharge. Denies any illicit drug usage. FAMILY HISTORY: Significant for breast cancer, diabetes. MEDICATIONS: The patient's hospital medications consist of aspirin, Coreg, folic acid, thiamine, Levemir, Lovenox, Neurontin, NovoLog, oxycodone, Seroquel, multivitamin, and Zosyn. PHYSICAL EXAMINATION: VITAL SIGNS: The patient's overnight T-max was 100.2, heart rate of 63 to 75, and blood pressure of 118 to 126/56 to 67. NEUROLOGIC: The patient is well developed, well nourished, in no acute distress. Only Consultation Report [facility] [address] [place]. [address] NAME: KENNETH LYMAN : 59 STATUS : ADM IN PAT#: [id number] AGE: 62 ADM/REG DATE : 04/11/17 MR#: [id number] REPORT SERV DATE: 04/14/17 DICTATED BY: DATE: REPORT STATUS : Draft TRANSCRIBED BY: MODL DATE: 04/14/17 limited examination was able to be performed secondary to the patient's behavior. The patient otherwise is able to answer orientation questions today. He was noted to be oriented to person, place, year, but not to month. The patient was slightly agitated with repeated questions but answers questions appropriately. He is able to follow simple and 2- step commands. No clear aphasia was noted. No significant dysarthria was appreciated. The patient's pupils are equal, round, and reactive to light. Horizontal eye movement was noted to be intact with intact bzpet-ir-ityhss response bilaterally. Symmetrical facial expression. Midline tongue. The patient demonstrated 5/5 bilateral upper and lower extremity strength at the time of evaluation. Reports symmetrical sensation. LABORATORY STUDIES: Demonstrated white blood cell count of 3.7, hemoglobin of 9.3, hematocrit of 27.0, and platelet count of 136. Chemistry Panel: Sodium of 142, potassium of 3.4, chloride 109, bicarb of 21, BUN of 23, creatinine 1.27, glucose of 103, calcium of 9.1, magnesium of 2.0, serum ammonia level of 18, and a.m. cortisol level of 14.6. The patient was noted to have procalcitonin level of 6.56. MRI of the brain otherwise demonstrated generalized atrophy, but no acute process was seen. The patient's CT scan of the abdomen, chest, and pelvis demonstrated some mild right upper lobe pneumonia as well as acute on chronic pancreatitis. No adenopathy was otherwise noted. IMPRESSION: Encephalopathy, mild improved agitation and more cooperative with examination, concern for possible encephalopathy secondary to systemic illness. MRI of the brain was reviewed which demonstrated no acute process. CT scan of the chest, abdomen, and pelvis was also reviewed which demonstrated right upper lobe pneumonia as well as possible acute on chronic pancreatitis. We will check lipase, amylase, and procalcitonin level. The patient was noted to have normal cortisol level in light of acute systemic process, concern for relative adrenal insufficiency. Once the patient's infectious concern is resolved, we will consider stress dose steroids. RECOMMENDATIONS: 1. Lipase, amylase, and procalcitonin level with morning labs. 2. Antibiotic as per primary team/hospitalist. 3. Possible steroid trial. C[facility]/MODL Jimmy Yeung MD / [id number] CC: MD Brooklyn Hooker M.D.
--- NOTE | ~2017-04-11 | HP ---
History And Physical [place] [id number] [facility] [address] [address] [address] NAME: KENNETH LYMAN : 59 STATUS : ADM IN PAT#: [id number] AGE: 62 ADM/REG DATE : 04/11/17 MR#: [id number] REPORT SERV DATE: 04/12/17 DICTATED BY: JORDI SALDIVAR DATE: 04/11/17 REPORT STATUS : Draft TRANSCRIBED BY: MODL DATE: 04/11/17 DATE OF ADMISSION: 04/11/2017 ADDENDUM: Correction of CT brain result: Incorrect CT brain result was dictated in the patient's H and P. The CT scan of the brain as read by [facility] shows unremarkable noncontrast head CT. No acute intracranial pathology. JARRELL/DOROTHY Jordi Saldivar MD / [id number] CC: MD Brooklyn Hooker M.D.
--- NOTE | ~2017-04-11 | DS ---
Discharge Summary [facility] [address] [place]. [address] NAME: KENNETH LINCOLN : 59 STATUS : DIS IN PAT#: [id number] AGE: 62 ADM/REG DATE : 04/11/17 MR#: [id number] REPORT SERV DATE: 04/17/17 DICTATED BY: MARIVEL MAHER DATE: 04/16/17 REPORT STATUS : Draft TRANSCRIBED BY: MODL DATE: 04/16/17 ADMISSION DATE: 04/11/2017 DISCHARGE DATE: 04/16/2017 REASON FOR ADMISSION: Toxic metabolic encephalopathy and acute kidney injury on CKD, stage III. HISTORY OF PRESENT ILLNESS: Please refer to Dr. Golden's history and physical dated 04/12/2017 for complete details regarding the patient's admission. In brief, the patient was readmitted to the Hospitalist Service for management and evaluation of his toxic encephalopathy and acute kidney injury. HOSPITAL COURSE: Several issues were addressed. 1. Toxic/metabolic encephalopathy. The patient had a prolonged hospitalization recently and was discharged home to the care of his daughter and son-in-law. At which point, he did okay the day of discharge and the day after discharge, but then started slowly to decline. While he was at home, he became hypotensive. He had vomited. He was not acting like his normal self. He even saw Dr. Cortez. It got to the point where the patient had a clear decline in his medical condition and he presented to the ER. He was encephalopathic on admission and it was not clear as to the etiology at that time. There was initial concern of possible alcohol withdrawal or Wernicke's encephalopathy. Neurology was consulted. The patient had a CT scan of his head done without contrast in the emergency room, which showed no acute process. He also had some hypotensive issues and acute kidney injury and started on IV fluids. His congestive heart failure medications, specifically lisinopril and carvedilol were held due to his hypotension and acute kidney injury. Neurology had recommended getting an MRI. We were unable to obtain an MRI the first day due to the patient being noncompliant with his encephalopathy. We were finally able to do it on 04/13/2017, which showed moderate diffuse cerebral involutional changes, no acute CVA or other acute intracranial pathology. There is a large mucous retention cyst in the right maxillary sinus. It was noted that the patient had spiked a mild low-grade temperature of 100.2. A procalcitonin was checked, which was markedly elevated above 6. At that point in time, our focus changed to possible an infectious etiology causing his encephalopathy. His encephalopathy was slowly improving to the point where he was becoming more cooperative and we were able to do a CT scan of his chest and abdomen and pelvis with IV contrast, which showed airspace disease in the right upper and right lower lobe concerning for pneumonia along with chronic pancreatitis with calcification and atrophy of the pancreas. There was no acute inflammation. No bowel obstruction or bowel wall inflammation. There are varices in the upper abdomen that are unchanged. The appendix is normal. He was started on IV Zosyn along with IV fluids. Then on day three or day four, his encephalopathy started to resolve. He was coming back towards his baseline. His hypotension had also resolved and his blood pressure medicines were restarted. Long discussion with the patient's daughter over the phone, I was concerned with possible oxycodone withdrawal, Neurontin withdrawal along with infectious etiology causing his metabolic and toxic encephalopathy. He has not had any alcohol whatsoever in the hospital and it has been about five days. So on the differential, alcohol Discharge Summary [address] [address] NAME: KENNETH LINCOLN : 59 STATUS : DIS IN [facility]#: [id number] AGE: 62 ADM/REG DATE : 04/11/17 MR#: [id number] REPORT SERV DATE: 04/17/17 DICTATED BY: MARIVEL MAHER DATE: 04/16/17 REPORT STATUS : Draft TRANSCRIBED BY: MODL DATE: 04/16/17 withdrawal is certainly there, but less likely a cause. At any rate, his encephalopathy has resolved and he is back to his baseline. 2. Acute kidney injury on CKD, stage III. The patient came in with a markedly elevated creatinine of around over 3. He was started on IV fluids, it had quickly resolved, and he is back to his baseline creatinine of around 1.3. At which time, his lisinopril was held, but it has been restarted. He has gotten two days worth now of his GRACIELA inhibitor. 3. 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 He had remained compensated throughout the hospitalization. As stated earlier, his heart failure medications were held secondary to hypotension and acute kidney injury, but have now been restarted. He is back on his home dose of carvedilol and a lower dose of his lisinopril. 4. History of alcohol abuse. This has been stable. He was not placed on a CIWA protocol and did not need any IV medications to control. He did not have any signs of withdrawal from alcohol. 5. History of multiple myeloma, status post remission. Dr. Cox paid a social visit to the patient, and again, this has been in remission. 6. Chronic pain, dependent on narcotics. The patient is on an impressive dose of oxycodone at home, which had been held prior to his admission because his blood pressure was in the low side at home. He was restarted on oxycodone on day two or day three of hospitalization at a very-very low-dose. He is maintained on oxycodone 5 mg once a day. He does not appear to be in pain and please note that this dose is significantly reduced compared to what his home regimen is. He is also on Neurontin at home and takes 300 mg twice a day, and he has been restarted on 300 mg daily. Again, he does not appear to be in pain. He is ambulating well with the use of a walker. 7. Debility. In the last admission, the patient was looked at for rehab at [facility], had apparently denied him. He went home with the daughter with the use of a walker. Throughout his stay at home, he became very-very unsteady. In the hospital after fluid hydration and his encephalopathy had resolved, Physical Therapy had re-evaluated the patient and again recommended that home would be safe for him. He was ambulating well with a walker and did not require any assistance except for the use of a walker. 8. History of rheumatoid arthritis. This has been stable. 9. Tobacco abuse. This has been stable. DISCHARGE DISPOSITION: The patient will be discharged home today in a stable condition to follow up with Dr. Cortez and Dr. Cox. DISCHARGE DIAGNOSES: 1. Toxic/metabolic encephalopathy, now resolved. Could be multifactorial secondary to withdrawal from oxycodone, withdrawal from Neurontin along with pneumonia. 2. Hypotension secondary to infection, this has been resolved with IV fluids. 3. Insulin-dependent diabetes, this has been stable. 4. Multiple myeloma, in remission, followed by Dr. Cox. 5. Chronic pain, dependent on narcotics, this has been stable, restarted on a lower dose of oxycodone. 6. History of chronic systolic congestive heart failure secondary to alcoholic cardiomyopathy, this has been compensated. Discharge Summary [address] [address] NAME: KENNETH LINCOLN : 59 STATUS : DIS IN PAT#: [id number] AGE: 62 ADM/REG DATE : 04/11/17 MR#: [id number] REPORT SERV DATE: 04/17/17 DICTATED BY: MARIVEL MAHER DATE: 04/16/17 REPORT STATUS : Draft TRANSCRIBED BY: DOROTHY DATE: 04/16/17 7. Acute kidney injury on CKD, stage III, now resolved with IV fluids. 8. Aspiration versus healthcare-associated pneumonia, improving on antibiotics. PROCEDURES: Include CT scan of the chest, abdomen, pelvis with IV contrast. CT scan of the head without contrast. MRI of the brain, consultation with Neurology. DISCHARGE MEDICATIONS: Include aspirin 81 mg once a day, carvedilol 6.25 mg twice a day, gabapentin 300 mg twice a day, insulin Levemir 10-15 units at bedtime, Seroquel 25 mg at bedtime p.r.n. anxiety, oxycodone immediate release 5 mg daily, nitroglycerin p.r.n. chest pain, lisinopril 5 mg daily, Crestor 20 mg at bedtime, Augmentin 875 mg twice a day for 10 days. Please note the significant medication changes including the decrease in lisinopril dosage, the decrease in oxycodone dosage, the discontinuation of OxyContin, the discontinuation of Librium, the change in frequency of Seroquel from every six hours to once a day p.r.n. This is Dr. Marivel Maher spending over 30 minutes discharge planning and coordination of care of Mr. Lincoln. DICTATED BY: MD WILLIAN Hooker/DOROTHY Marivel Maher MD / [id number] CC: MD Brooklyn Hooker M.D. Edward Arrowsmith, M.D.
--- NOTE | ~2017-04-11 | HP ---
History And Physical [facility] [address] [facility] [place]. [address] NAME: KENNETH LINCOLN : 59 STATUS : ADM IN [facility]#: [id number] AGE: 62 ADM/REG DATE : 04/11/17 MR#: [id number] REPORT SERV DATE: 04/12/17 DICTATED BY: JORDI SALDIVAR DATE: 04/11/17 REPORT STATUS : Draft TRANSCRIBED BY: MODL DATE: 04/11/17 DATE OF ADMISSION: 04/11/2017 POINT OF ENTRY: [facility] Emergency Department. CHIEF COMPLAINT: Sedation, lethargy, weakness. HISTORY OF PRESENT ILLNESS: Mr. Lincoln is a 62-year-old gentleman with a history of alcoholism with recent admission for alcohol withdrawal, complicated by delirium tremens as well as chronic systolic congestive heart failure with ejection fraction of 25%, who was brought to the emergency department today by his daughter for reports of sedation, lethargy as well as confusion. The patient had a prolonged hospitalization from end of February through 04/09/2017, initially for hypotension and acute kidney injury. During that stay, he was noted to suffer from alcohol withdrawal and delirium tremens requiring an ICU admission. The patient was finally weaned down to low doses of Librium for alcohol withdrawal. His acute kidney injury had resolved and the patient was discharged to home on 04/09/2017. According to daughter, she felt as if the patient may have be discharged to soon as he was still very weak, unsteady on his feet, and not eating a whole lot. The patient was reportedly declined at [facility], but she was unsure as to if the patient has been declined other rehab facilities. Daughter states that for the past two days while at home, he has been doing fairly well. He is still very weak and unsteady on his feet. When working with physical therapy yesterday, they noted his blood pressures were very low as low as 60s/40s. She has not been giving him his lisinopril or his carvedilol given low blood pressure. He has also not received any Librium in the last two days. He does state that he did take two doses of Seroquel today for some insomnia and restless legs as well as some pain medications, which he has been prescribed. Upon returning home today, daughter found the patient sedated and asleep on the couch, but easily awaken with verbal stimuli. They went to go see Dr. Cortez for a regular scheduled visit and there was noted to continue to have worsening level of consciousness as well as confusion, sedation, lethargy. Daughter states that at all times, the patient was able to be woken up with just minimal verbal stimuli; however, he was to falling back to sleep quicker and quicker prompting presentation to the emergency department. Initial evaluation in the emergency department was notable for blood pressure of 108/51. Lab was notable for a BUN of [address] scan of the brain was negative. Chest x-ray was clear. The patient was started on some IV fluids. He was given a little dose of Narcan with some mild improvement in the patient's mental status and admitted to the Hospitalist Service. The patient and daughter deny any recent fevers, night sweats, chills, cough, sputum production, shortness of breath, chest pain, palpitations, abdominal pain, diarrhea, constipation, dysuria, lower extremity edema, melena, hematochezia, or hemoptysis. The patient did have some nausea and vomiting at Dr. Cortez's office earlier today. Again, blood pressure has been low. They have been holding blood pressure medications as well as History And Physical [address] [address] NAME: KENNETH LINCOLN : 59 STATUS : ADM IN [facility]#: [id number] AGE: 62 ADM/REG DATE : 04/11/17 MR#: [id number] REPORT SERV DATE: 04/12/17 DICTATED BY: JORDI SALDIVAR DATE: 04/11/17 REPORT STATUS : Draft TRANSCRIBED BY: DOROTHY DATE: 04/11/17 some of his other sedating medications, but did admit to taking some Seroquel as well as some pain medications earlier today. COMPREHENSIVE REVIEW OF SYSTEMS: Otherwise negative unless listed in his history of present illness. PREVIOUS MEDICAL HISTORY: 1. Chronic systolic congestive heart failure with ejection fraction of 25%. 2. Chronic kidney disease stage 3 with baseline creatinine of 1.6 to 1.8. 3. Multiple myeloma status post chemotherapy treatment. 4. Coronary artery disease with prior coronary artery bypass grafting. 5. Alcoholism with recent alcohol withdrawal and delirium tremens. 6. Hypertension. 7. Depression. 8. Insulin-dependent diabetes mellitus type 2. 9. Rheumatoid arthritis. 10.COPD. 11.Neuropathy. SURGICAL HISTORY: 1. Mitral valve repair. 2. CABG. ALLERGIES: PHENERGAN. HOME MEDICATIONS: 1. Aspirin 81 mg daily. 2. Carvedilol 6.25 mg b.i.d. 3. Librium 25 mg p.r.n. 4. Neurontin 300 mg b.i.d. 5. Insulin FlexPen 10-15 units q.h.s. 6. Lisinopril 20 mg daily. 7. Nitroglycerin p.r.n. 8. Roxicodone 40 mg q.4 hours. 9. OxyContin 10 mg b.i.d. 10.Seroquel 25 mg q.6 hours p.r.n. 11.Crestor 25 mg q.h.s. SOCIAL HISTORY: Does smoke as well as dips, has a history of long-standing alcohol abuse and alcoholism, but has not had any alcohol intake since his discharge. Denies any illicits. FAMILY MEDICAL HISTORY: Mother with breast cancer. Father with diabetes. Siblings otherwise healthy. LABORATORY DATA AND IMAGIN. White count is 8.9, hemoglobin 10.9, hematocrit is 32.8, platelet count is 185. 2. Sodium 137, potassium 4.8, chloride 105, carbon dioxide 23, BUN 42, creatinine 3.05, History And Physical [address] [address] NAME: KENNETH LINCOLN : 59 STATUS : ADM IN [facility]#: [id number] AGE: 62 ADM/REG DATE : 04/11/17 MR#: [id number] REPORT SERV DATE: 04/12/17 DICTATED BY: JORDI SALDIVAR DATE: 04/11/17 REPORT STATUS : Draft TRANSCRIBED BY: MODL DATE: 04/11/17 glucose is 110, calcium is 9.4, protein is 6.9, albumin is 3.7, bilirubin is 0.9, ALT is 20, AST 15, and alkaline phosphatase is 83. 3. Serum urine drug screen is negative. 4. BNP is 160.5. 5. Chest x-ray per my review shows no acute cardiopulmonary abnormality. CT scan of the brain per overnight virtual radiology read shows chronic ischemic and involutional changes without CT evidence of acute intracranial hemorrhage or acute territorial infarction, ill-defined hypoattenuation in the right thalamus in the region of the patient's prior hemorrhage, likely representing calcification. 6. EKG per my review shows normal sinus rhythm with occasional PVCs as well as inferior Q- waves, otherwise no acute ischemia or infarction. 7. ABG; pH is 7.32, pCO2 is 43, pO2 is 71, bicarbonate is 21, saturating 92% on room air. PHYSICAL EXAMINATION: VITAL SIGNS: Temperature is 97.9 degrees Fahrenheit, pulse is 70, respirations 14, saturating 99% on room air, blood pressure 108/51. GENERAL: The patient is awake, alert, in no acute distress. Resting comfortably in bed. He is a well-developed and well-nourished, male. Daughter is at bedside. HEENT: Atraumatic and normocephalic. Moist mucous membranes. Pupils are equal, round, reactive to light and accommodation. Extraocular eye movements intact. No scleral icterus. NECK: No jugular venous distention. No carotid bruits. CARDIAC: Regular rate and rhythm. No murmurs or gallops. Normal S1 and S2. LUNGS: Clear to auscultation bilaterally. No wheezes, rhonchi, or crackles. ABDOMEN: Soft, nontender, nondistended with good bowel sounds. No rebound, guarding, or rigidity. EXTREMITIES: Warm and well perfused. No cyanosis, clubbing, or edema. SKIN: Warm and dry. PSYCH: Affect appropriate. NEURO: Alert and oriented x2. He is unsure of the months. Cranial nerves II through XII are grossly intact. Speech is normal. Gait is not assessed. The patient does not have any tongue fasciculations or upper extremity tremor. No evidence of any asterixis. Does have some noticeable confusion as well as possible confabulation. ASSESSMENT: Mr. Lincoln is a 62-year-old gentleman with history of alcohol abuse, who presents with acute onset of sedation, lethargy, and confusion, likely medication related versus possible Wernicke encephalopathy. PROBLEM LIST: 1. Encephalopathy. 2. Sedation and lethargy. 3. Acute kidney injury on chronic kidney disease stage 3. 4. Chronic systolic congestive heart failure. 5. History of alcoholism. PLAN: 1. Encephalopathy may be medication related as he admits to taking some Seroquel as well as some of his pain medications. I also am concerned for Wernicke encephalopathy given History And Physical [place] [id number] [facility] [place]. [address] NAME: KENNETH LINCOLN : 59 STATUS : ADM IN PAT#: [id number] AGE: 62 ADM/REG DATE : 04/11/17 MR#: [id number] REPORT SERV DATE: 04/12/17 DICTATED BY: JORDI SALDIVAR DATE: 04/11/17 REPORT STATUS : Draft TRANSCRIBED BY: DOROTHY DATE: 04/11/17 his history of alcohol abuse as well as possible confabulation on exam. We will hold all sedating medications. Place the patient on high-dose IV thiamine. Consult Neurology for assistance as well as checking MRI in the morning. Also checking ammonia level, thyroid function studies, vitamin B12 as well as urine drug screen and urinalysis. 2. Acute kidney injury on chronic kidney disease stage 3. This is likely due to low blood pressures as documented by the patient's daughter as they report he has not been taking his carvedilol or lisinopril at home. Continue to hold his nephrotoxic medications. Provide IV fluid hydration. Follow up urine lytes. 3. Chronic systolic congestive heart failure. The patient appears euvolemic at this time. Provide gentle IV fluid hydration. 4. Sedation and lethargy, likely medication related. He has received some Narcan with improvement. Hold all sedating medications. Remainder of his workup thus far has been unremarkable. 5. History of alcoholism and alcohol abuse. No evidence of any alcohol withdrawal at this time. Holding his p.r.n. Librium given altered mental status and lethargy. We will place the patient on alcohol withdrawal protocol for monitoring and p.r.n. administration as needed. 6. DVT prophylaxis. Heparin subcutaneously. CODE STATUS: The patient wished to be full code. JARRELL/DOROTHY Jordi Saldivar MD / [id number] CC: MD Brooklyn Hooker M.D.
[~2017-04-11 18:02] MED LIST changes: +COREG6 PO; +L25 PO; +SEROQUEL25 PO; +ZESTRIL20 MG PO
[2017-04-11 18:49] LABS: ALLENS TEST Pos; BE (BASE EXCESS) -4.5 MEQ/L (0 +/- 2.5); CARBOXYHEMOGLOBIN 2.7 % (0-3); HCO3 (ACTUAL BICARBONATE) 21.5 MEQ/L (23-27); HEMOBLOGIN CONTENT 11.3 G/DL (14-18); INSTRUMENT SERIAL # 8087; METHEMOGLOBIN 0.1 % (0-3); O2 CONTENT 14.3 VOL% (18-24); PCO2 (CO2 TENSION) 43 MMHG (35-45); PO2 (O2 TENSION) 71 MMHG (79-93); SAMPLE Arterial; pH 7.32 (7.37-7.43)
[2017-04-11 19:24] LABS: BASOPHILS 0.9 %; BASOPHILS ABSOLUTE 0.08 10/3/uL (0.0-0.16); EOSINOPHILS 5.8 %; EOSINOPHILS ABSOLUTE 0.52 10/3/uL (0.0-0.53); ER CBC TAT 0 Hrs 00 Mins; HEMATOCRIT 32.8 % (40.0-51.0); HEMOGLOBIN 10.9 g/dL (13.6-17.8); IMMATURE GRANULOCYTES 0.1 %; IMMATURE GRANULOCYTES ABSOLUTE 0.01 10/3/uL (0.0-0.11); LYMPHOCYTES 30.5 %; LYMPHOCYTES ABSOLUTE 2.72 10/3/uL (0.67-4.30); MEAN CORPUS HGB CONC 33.2 g/dL (32.0-36.0); MEAN CORPUSCULAR HEMOGLOB 32.2 pg (26.0-34.0); MEAN PLATELET VOLUME 12.1 fL (9.2-13.0); MONOCYTES 5.6 %; NEUTROPHILS 57.1 %; PLATELET COUNT 185 10/3/uL (150-400); RBC DISTRIBUTION WIDTH 15.6 % (12.0-16.0); RED CELL COUNT 3.38 10/6/uL (4.7-6.1); WHITE BLOOD CELLS 8.9 10/3/uL (4.5-10.5)
[2017-04-11 19:25] LABS: MANUAL DIFF NO %
[2017-04-11 19:37] LABS: A/G RATIO 1.2 (0.7-1.9); ALBUMIN 3.7 G/DL (3.5-5.0); ALKALINE PHOSPHATASE 83 U/L (45-117); CALCIUM, SERUM 9.4 MG/DL (8.5-10.4); CHLORIDE, SERUM 105 MMOL/L (96-112); GLOBULIN 3.2 G/DL (2.5-4.1); POTASSIUM, SERUM 4.8 MMOL/L (3.5-5.3); SGOT(AST) 15 U/L (5-40); SGPT(ALT) 20 U/L (5-65); SODIUM, SERUM 137 MMOL/L (135-148); TOTAL BILIRUBIN 0.8 MG/DL (0-1.2); TOTAL PROTEIN 6.9 G/DL (6.0-8.5)
[2017-04-11 19:38] LABS: ACETAMINOPHEN LEVEL (TYLENOL) < 2.0 MCG/ML (10.0-20.0); ALCOHOL < 10 MG/DL (0); BUN (BLOOD UREA NITROGEN) 42 MG/DL (6-23); CO2 (CARBON DIOXIDE) 23 MMOL/L (24-34); CREATININE 3.05 MG/DL (0.70-1.30); GFR AFRICAN AMERICAN 25 ML/MIN (>=60); GFR NON AFRICAN AMERICAN 21 ML/MIN (>=60); GLUCOSE, SERUM 110 MG/DL (60-99); SALICYLATE < 1.7 MG/DL (-)
[2017-04-11] MEDS ORDERED: NEUR300 PO (21:03)
[2017-04-11] MEDS ORDERED: CRESTOR20 MG PO (21:03)
[2017-04-11] MEDS ORDERED: LEVEMFLXPN SC (21:04)
[2017-04-11] MEDS ORDERED: L25 PO (21:04)
[2017-04-11] MEDS ORDERED: SEROQUEL25 PO (21:05)
[2017-04-11] MEDS ORDERED: OXYCOD PO (21:05)
[2017-04-11] MEDS ORDERED: OXYCON10 PO (21:07)
[2017-04-11] MEDS ORDERED: PRIN20 PO (21:10)
[2017-04-11] MEDS ORDERED: NITROSTAT0.4 MG SL (21:10)
[2017-04-11] MEDS ORDERED: ASAB PO (21:10)
[2017-04-11] MEDS ORDERED: COREG6 PO (21:12)
[2017-04-11 21:39] LABS: WBC (NOT ORDERED) (RFLEX) 0 (0-5)
[2017-04-11 21:45] LABS: ASCORBIC ACID (UR NOT ORDER) NEG (NEG); BILIRUBIN, URINE NEGATIVE (NEG); ER URINALYSIS TAT 0 Hrs 07 Mins; KETONE, URINE NEGATIVE (NEG); LEUKOCYTE ESTERASE(NOT OR NEG (NEG); NITRITE (URINE) NEG (NEG)
[2017-04-11 22:05] LABS: AMPHETAMINES (NOT ORD) NEG (NEG); BARBITURATES (NOT ORDERED NEG (NEG); BENZODIAZEPINES (NOT ORD) POS (NEG); CANNABINOIDS (THC) NEG (NEG); COCAINE (NOT ORDERED) NEG (NEG); OPIATES POS (NEG); PHENCYCLIDINE(PCP) NEG (NEG); TRICYCLICS NEG (NEG)
[2017-04-12 12:58] LABS: BASOPHILS 0.2 %; BASOPHILS ABSOLUTE 0.01 10/3/uL (0.0-0.16); EOSINOPHILS 0.2 %; EOSINOPHILS ABSOLUTE 0.01 10/3/uL (0.0-0.53); HEMATOCRIT 31.2 % (40.0-51.0); HEMOGLOBIN 10.6 g/dL (13.6-17.8); LYMPHOCYTES 13.1 %; MANUAL DIFF NO %; MEAN CORPUSCULAR HEMOGLOB 32.4 pg (26.0-34.0); MEAN CORPUSCULAR VOLUME 95.4 fL (80-100); MEAN PLATELET VOLUME 12.4 fL (9.2-13.0); MONOCYTES 5.5 %; MONOCYTES ABSOLUTE 0.25 10/3/uL (0.21-1.20); PLATELET COUNT 147 10/3/uL (150-400); RBC DISTRIBUTION WIDTH 15.5 % (12.0-16.0); RED CELL COUNT 3.27 10/6/uL (4.7-6.1); WHITE BLOOD CELLS 4.6 10/3/uL (4.5-10.5)
[2017-04-12 13:35] LABS: ALBUMIN 3.1 G/DL (3.5-5.0); BUN (BLOOD UREA NITROGEN) 36 MG/DL (6-23); CALCIUM, SERUM 8.7 MG/DL (8.5-10.4); CHLORIDE, SERUM 106 MMOL/L (96-112); CO2 (CARBON DIOXIDE) 25 MMOL/L (24-34); CREATININE 2.11 MG/DL (0.70-1.30); FREE T4 1.08 NG/DL (0.76-1.46); GFR AFRICAN AMERICAN 38 ML/MIN (>=60); GFR NON AFRICAN AMERICAN 33 ML/MIN (>=60); GLUCOSE, SERUM 180 MG/DL (60-99); PHOSPHORUS, SERUM 3.2 MG/DL (2.5-4.5); POTASSIUM, SERUM 4.4 MMOL/L (3.5-5.3); SODIUM, SERUM 138 MMOL/L (135-148); TROPONIN I 0.02 NG/ML (<0.05); ULTRASENSITIVE TSH 0.342 MCIU/ML (0.358-3.740)
[2017-04-13 14:21] LABS: BASOPHILS 0.6 %; BASOPHILS ABSOLUTE 0.03 10/3/uL (0.0-0.16); EOSINOPHILS 1.8 %; EOSINOPHILS ABSOLUTE 0.09 10/3/uL (0.0-0.53); HEMATOCRIT 27.9 % (40.0-51.0); HEMOGLOBIN 9.6 g/dL (13.6-17.8); IMMATURE GRANULOCYTES 0.2 %; IMMATURE GRANULOCYTES ABSOLUTE 0.01 10/3/uL (0.0-0.11); LYMPHOCYTES ABSOLUTE 1.11 10/3/uL (0.67-4.30); MANUAL DIFF NO %; MEAN CORPUS HGB CONC 34.4 g/dL (32.0-36.0); MEAN CORPUSCULAR HEMOGLOB 32.7 pg (26.0-34.0); MEAN CORPUSCULAR VOLUME 94.9 fL (80-100); MEAN PLATELET VOLUME 12.7 fL (9.2-13.0); MONOCYTES 3.4 %; MONOCYTES ABSOLUTE 0.17 10/3/uL (0.21-1.20); NEUTROPHILS ABSOLUTE 3.63 10/3/uL (2.02-8.40); PLATELET COUNT 160 10/3/uL (150-400); RBC DISTRIBUTION WIDTH 15.5 % (12.0-16.0); RED CELL COUNT 2.94 10/6/uL (4.7-6.1)
[2017-04-13 14:37] LABS: ALKALINE PHOSPHATASE 89 U/L (45-117); CALCIUM, SERUM 9.2 MG/DL (8.5-10.4); CHLORIDE, SERUM 106 MMOL/L (96-112); CO2 (CARBON DIOXIDE) 24 MMOL/L (24-34); GLOBULIN 3.1 G/DL (2.5-4.1); PHOSPHORUS, SERUM 3.9 MG/DL (2.5-4.5); POTASSIUM, SERUM 3.9 MMOL/L (3.5-5.3); SGOT(AST) 14 U/L (5-40); SGPT(ALT) 19 U/L (5-65); SODIUM, SERUM 139 MMOL/L (135-148); TOTAL BILIRUBIN 1.2 MG/DL (0-1.2); TOTAL PROTEIN 6.1 G/DL (6.0-8.5)
[2017-04-13 14:39] LABS: BUN (BLOOD UREA NITROGEN) 32 MG/DL (6-23); CPK 41 U/L (0-200); CREATININE 1.36 MG/DL (0.70-1.30); GFR AFRICAN AMERICAN 65 ML/MIN (>=60); GFR NON AFRICAN AMERICAN 56 ML/MIN (>=60); GLUCOSE, SERUM 124 MG/DL (60-99)
[2017-04-13 15:14] LABS: PROCALCITONIN 6.56 ng/mL (<0.5)
[2017-04-14 05:27] LABS: BASOPHILS 0.8 %; BASOPHILS ABSOLUTE 0.03 10/3/uL (0.0-0.16); EOSINOPHILS 5.3 %; HEMOGLOBIN 9.3 g/dL (13.6-17.8); IMMATURE GRANULOCYTES 0.3 %; IMMATURE GRANULOCYTES ABSOLUTE 0.01 10/3/uL (0.0-0.11); LYMPHOCYTES 35.8 %; LYMPHOCYTES ABSOLUTE 1.34 10/3/uL (0.67-4.30); MANUAL DIFF NO %; MEAN CORPUS HGB CONC 34.4 g/dL (32.0-36.0); MEAN CORPUSCULAR HEMOGLOB 32.6 pg (26.0-34.0); MEAN CORPUSCULAR VOLUME 94.7 fL (80-100); MEAN PLATELET VOLUME 11.8 fL (9.2-13.0); MONOCYTES 6.1 %; MONOCYTES ABSOLUTE 0.23 10/3/uL (0.21-1.20); NEUTROPHILS 51.7 %; NEUTROPHILS ABSOLUTE 1.93 10/3/uL (2.02-8.40); PLATELET COUNT 136 10/3/uL (150-400); RBC DISTRIBUTION WIDTH 15.3 % (12.0-16.0); RED CELL COUNT 2.85 10/6/uL (4.7-6.1); WHITE BLOOD CELLS 3.7 10/3/uL (4.5-10.5)
[2017-04-14 05:46] LABS: A/G RATIO 0.9 (0.7-1.9); ALBUMIN 2.7 G/DL (3.5-5.0); ALKALINE PHOSPHATASE 75 U/L (45-117); BUN (BLOOD UREA NITROGEN) 23 MG/DL (6-23); CALCIUM, SERUM 9.1 MG/DL (8.5-10.4); CHLORIDE, SERUM 109 MMOL/L (96-112); CO2 (CARBON DIOXIDE) 21 MMOL/L (24-34); CREATININE 1.27 MG/DL (0.70-1.30); GFR AFRICAN AMERICAN 71 ML/MIN (>=60); GFR NON AFRICAN AMERICAN 61 ML/MIN (>=60); GLUCOSE, SERUM 103 MG/DL (60-99); PHOSPHORUS, SERUM 3.6 MG/DL (2.5-4.5); POTASSIUM, SERUM 3.4 MMOL/L (3.5-5.3); SGOT(AST) 13 U/L (5-40); SGPT(ALT) 16 U/L (5-65); SODIUM, SERUM 142 MMOL/L (135-148); TOTAL BILIRUBIN 0.8 MG/DL (0-1.2); TOTAL PROTEIN 5.7 G/DL (6.0-8.5)
[2017-04-15 05:04] LABS: BASOPHILS ABSOLUTE 0.03 10/3/uL (0.0-0.16); EOSINOPHILS 6.8 %; EOSINOPHILS ABSOLUTE 0.21 10/3/uL (0.0-0.53); HEMATOCRIT 27.5 % (40.0-51.0); HEMOGLOBIN 9.4 g/dL (13.6-17.8); IMMATURE GRANULOCYTES 0.3 %; IMMATURE GRANULOCYTES ABSOLUTE 0.01 10/3/uL (0.0-0.11); LYMPHOCYTES 47.1 %; LYMPHOCYTES ABSOLUTE 1.45 10/3/uL (0.67-4.30); MEAN CORPUS HGB CONC 34.2 g/dL (32.0-36.0); MEAN CORPUSCULAR HEMOGLOB 32.2 pg (26.0-34.0); MEAN CORPUSCULAR VOLUME 94.2 fL (80-100); MEAN PLATELET VOLUME 12.6 fL (9.2-13.0); MONOCYTES 5.5 %; MONOCYTES ABSOLUTE 0.17 10/3/uL (0.21-1.20); NEUTROPHILS 39.3 %; NEUTROPHILS ABSOLUTE 1.21 10/3/uL (2.02-8.40); PLATELET COUNT 168 10/3/uL (150-400); RBC DISTRIBUTION WIDTH 14.9 % (12.0-16.0); RED CELL COUNT 2.92 10/6/uL (4.7-6.1); WHITE BLOOD CELLS 3.1 10/3/uL (4.5-10.5)
[2017-04-15 05:06] LABS: MANUAL DIFF NO %
[2017-04-15 05:24] LABS: ALBUMIN 2.8 G/DL (3.5-5.0); ALKALINE PHOSPHATASE 65 U/L (45-117); BUN (BLOOD UREA NITROGEN) 15 MG/DL (6-23); CALCIUM, SERUM 9.1 MG/DL (8.5-10.4); CHLORIDE, SERUM 111 MMOL/L (96-112); CO2 (CARBON DIOXIDE) 23 MMOL/L (24-34); GFR AFRICAN AMERICAN 69 ML/MIN (>=60); GFR NON AFRICAN AMERICAN 59 ML/MIN (>=60); GLOBULIN 2.8 G/DL (2.5-4.1); GLUCOSE, SERUM 135 MG/DL (60-99); POTASSIUM, SERUM 3.3 MMOL/L (3.5-5.3); SGOT(AST) 13 U/L (5-40); SGPT(ALT) 12 U/L (5-65); SODIUM, SERUM 143 MMOL/L (135-148); TOTAL BILIRUBIN 0.6 MG/DL (0-1.2); TOTAL PROTEIN 5.6 G/DL (6.0-8.5)
[2017-04-15 06:21] LABS: PROCALCITONIN 1.89 ng/mL (<0.5)
[2017-04-16] MEDS ORDERED: ZESTRIL5 MG PO (13:50)
[2017-04-16] MEDS ORDERED: AUG875 PO (13:51)
[2017-04-19 20:53] LABS: ACETYLCHOLINE REC BINDING AB <0.30 nmol/L (<0.31); ACETYLCHOLINE RECEPT BLOCK AB <15 % (<15); ACETYLCHOLINE RECEPTOR MOD AB 11 % (<32); STRIATED MUSCLE ANTIBODY Negative (NEG); STRIATED MUSCLE ANTIBODY TITER ND
[2017-07-18] MEDS ORDERED: LYRICA50 PO (09:01)
[2017-07-18] MEDS ORDERED: NOVOLOG SC (09:03)
== END 2017-04-16 16:33 | disposition home or self-care (01) | DRG 91 ==
LOC: ER 18:02 → 5SO 22:22
PROVIDERS: Emergency Medicine; Internal Medicine; Psychiatry & Neurology Neurology
DX: G92 Toxic encephalopathy (principal); J69.0 Pneumonitis due to inhalation of food and vomit; J18.9 Pneumonia, unspecified organism; I95.89 Other hypotension; I13.0 Hypertensive heart and chronic kidney disease with heart failure and stage 1 through stage 4 chronic kidney disease, or unspecified chronic kidney disease; E11.22 Type 2 diabetes mellitus with diabetic chronic kidney disease; N17.9 Acute kidney failure, unspecified; I50.22 Chronic systolic (congestive) heart failure; N18.3 Chronic kidney disease, stage 3 (moderate); C90.01 Multiple myeloma in remission; F11.23 Opioid dependence with withdrawal; F19.939 Other psychoactive substance use, unspecified with withdrawal, unspecified; T40.2X5A Adverse effect of other opioids, initial encounter; I25.10 Atherosclerotic heart disease of native coronary artery without angina pectoris; Z95.1 Presence of aortocoronary bypass graft; G89.29 Other chronic pain; Y95 Nosocomial condition; F17.220 Nicotine dependence, chewing tobacco, uncomplicated; F17.210 Nicotine dependence, cigarettes, uncomplicated; F10.20 Alcohol dependence, uncomplicated
CPT/HCPCS: 36600; 70450; 70551; 71010; 71260; 74177; 80053; 80069; 80305; 80307; 81001; 82140; 82150; 82533; 82550; 82607; 82746; 82805; 82962; 83519; 83519-59; 83690; 83735; 83880; 84100; 84145; 84439; 84443; 84484; 85025; 86255; 86592; 87040; 87389; 93005; 96374; 96375; 97161-GP; 99285; A9270-GY; J2405; J2543; J3411